=== PATIENT | female | born 1935 | race Caucasian/White ===

== ENCOUNTER 2017-07-31 12:50 | Emergency (ER) | payer MEDICARE, OTHER ==
[~2017-07-31] VITALS: Ht 154.9 cm; Wt 68.0 kg
[~2017-07-31 12:50] MED LIST: ACET325 PO; LISI10 PO; LISI20 PO; LOVA20 PO; LOVA40 PO; METO25ER PO; METO50 PO; METO50ER PO; VITAMIN C PO; VITAMIN E PO; WARF2.5 PO; WARF5 PO; [UNRECOGNIZED DRUG - OTHER] PO; [UNRECOGNIZED DRUG - REMARK]; [UNRECOGNIZED DRUG - REMARK]
[2017-07-31 13:40] LABS: BASOPHILS ABSOLUTE AUTO 0.02 K/mm3 (0.00-0.23); BASOPHILS PERCENT AUTO 0 % (0-2); EOSINOPHILS ABSOLUTE AUTO 0.03 K/mm3 (0.00-0.68); EOSINOPHILS PERCENT AUTO 1 % (0-6); Hematocrit 39.1 % (33.0-51.0); IMMATURE GRAN ABSOLUTE AUTO 0.03 K/mm3 (0.00-0.10); IMMATURE GRAN PERCENT AUTO 1 % (0-1); LYMPHOCYTES ABSOLUTE AUTO 0.46 K/mm3 (0.84-5.20); LYMPHOCYTES PERCENT AUTO 9 % (21-46); MONOCYTES ABSOLUTE AUTO 0.32 K/mm3 (0.16-1.47); MONOCYTES PERCENT AUTO 7 % (4-13); Mean Corpuscular HGB 29.3 pg (26.0-34.0); Mean Corpuscular HGB Conc 33.2 g/dL (31.5-36.5); Mean Corpuscular Volume 88 fL (80-100); Mean Platelet Volume 9.3 fL (9.1-12.4); NEUTROPHILS ABSOLUTE AUTO 4.09 K/mm3 (1.96-9.15); NEUTROPHILS PERCENT AUTO 83 % (41-73); Platelet Count 114 K/mm3 (150-400); RDW Coefficient Variation 13.7 % (11.7-14.2); RDW Standard Deviation 44.2 fL (35.1-46.3); Red Blood Cell Count 4.43 M/mm3 (3.80-5.20); White Blood Cell Count 4.95 K/mm3 (4.00-11.30)
[2017-07-31 13:52] LABS: International Normalized Ratio 2.26; Prothrombin Time Results 24.1 Sec (9.7-11.5)
[2017-07-31 14:00] LABS: Alanine Aminotransfer (ALT/SGP 31 U/L (12-78); Albumin, Blood 3.7 g/dL (3.4-5.0); Albumin/Globulin Ratio 1.2 (0.8-1.8); Alk Phos 67 U/L (50-136); Anion Gap 7 mmol/L (6-16); Aspartate Aminotrans (AST/SGOT 23 U/L (12-37); Bilirubin, Total 0.5 mg/dL (0.1-1.0); Blood Urea Nitrogen 17 mg/dL (8-24); Bun/Creatinine Ratio 21.8 (12.0-20.0); CO2, Blood 28 mmol/L (21-32); Calcium, Blood 8.5 mg/dL (8.5-10.1); Chloride, Blood 106 mmol/L (98-108); Creatinine, Blood 0.78 mg/dL (0.40-1.00); Glomerular Filtration Rate >60 (60-); Glucose, Blood 120 mg/dL (70-99); Potassium, Blood 4.1 mmol/L (3.5-5.5); Sodium, Blood 141 mmol/L (136-145); Total Protein, Blood 6.7 g/dL (6.4-8.2)
[2017-07-31] MEDS ORDERED: ALBU90OI INH (15:17)
[2017-07-31] MEDS ORDERED: Mucinex600 MG PO (15:17)
== END 2017-07-31 15:26 | disposition home or self-care (01) ==
LOC: ER 12:50
PROVIDERS: Emergency Medicine
DX: J40 Bronchitis, not specified as acute or chronic (principal); I48.91 Unspecified atrial fibrillation; E78.5 Hyperlipidemia, unspecified; Z88.2 Allergy status to sulfonamides; Z79.899 Other long term (current) drug therapy; Z79.01 Long term (current) use of anticoagulants
CPT/HCPCS: 36415; 71046; 80053; 83880; 85025; 85610; 93005; 93010; 94640; 99283

== ENCOUNTER 2018-01-13 22:06 | Observation (INO) | payer MEDICARE, OTHER ==
[~2018-01-13] VITALS: Ht 160 cm; Wt 70.4 kg
[~2018-01-13 22:06] MED LIST changes: +ALBU90OI INH; +Mucinex600 MG PO
[2018-01-13 22:37] LABS: BASOPHILS ABSOLUTE AUTO 0.02 K/mm3 (0.00-0.23); BASOPHILS PERCENT AUTO 0 % (0-2); EOSINOPHILS ABSOLUTE AUTO 0.01 K/mm3 (0.00-0.68); EOSINOPHILS PERCENT AUTO 0 % (0-6); Hematocrit 41.7 % (33.0-51.0); Hemoglobin 13.7 g/dL (11.5-16.0); IMMATURE GRAN ABSOLUTE AUTO 0.03 K/mm3 (0.00-0.10); IMMATURE GRAN PERCENT AUTO 1 % (0-1); LYMPHOCYTES ABSOLUTE AUTO 0.68 K/mm3 (0.84-5.20); LYMPHOCYTES PERCENT AUTO 11 % (21-46); MONOCYTES PERCENT AUTO 7 % (4-13); Mean Corpuscular HGB 29.4 pg (26.0-34.0); Mean Corpuscular HGB Conc 32.9 g/dL (31.5-36.5); Mean Corpuscular Volume 90 fL (80-100); Mean Platelet Volume 8.8 fL (9.1-12.4); NEUTROPHILS ABSOLUTE AUTO 4.93 K/mm3 (1.96-9.15); NEUTROPHILS PERCENT AUTO 81 % (41-73); Platelet Count 125 K/mm3 (150-400); RDW Coefficient Variation 14.1 % (11.7-14.2); Red Blood Cell Count 4.66 M/mm3 (3.80-5.20); White Blood Cell Count 6.07 K/mm3 (4.00-11.30)
[2018-01-13 22:50] LABS: International Normalized Ratio 1.87; Prothrombin Time Results 18.6 Sec (9.7-11.5)
[2018-01-13 22:55] LABS: Alanine Aminotransfer (ALT/SGP 49 U/L (12-78); Albumin/Globulin Ratio 1.5 (0.8-1.8); Alk Phos 68 U/L (50-136); Anion Gap 10 mmol/L (6-16); Aspartate Aminotrans (AST/SGOT 48 U/L (12-37); Bilirubin, Total 0.5 mg/dL (0.1-1.0); Blood Urea Nitrogen 20 mg/dL (8-24); Bun/Creatinine Ratio 26.8 (12.0-20.0); CO2, Blood 25 mmol/L (21-32); Calcium, Blood 8.5 mg/dL (8.5-10.1); Chloride, Blood 104 mmol/L (98-108); Creatinine, Blood 0.75 mg/dL (0.40-1.00); Globulin, Blood 2.7 g/dL (2.2-4.0); Glomerular Filtration Rate >60 (60-); Glucose, Blood 164 mg/dL (70-99); Potassium, Blood 4.3 mmol/L (3.5-5.5); Sodium, Blood 139 mmol/L (136-145); Total Protein, Blood 6.7 g/dL (6.4-8.2); Troponin I 0.141 ng/mL (0.000-0.040)
[2018-01-14 01:44] LABS: Free Thyroxine 1.24 ng/dL (0.70-1.60)
[2018-01-14 01:45] LABS: Triiodothyronine, Free 2.8 pg/mL (2.18-3.98)
[2018-01-14 01:49] LABS: Source, Urine Clean Catch
[2018-01-14 01:51] LABS: Bilirubin, Urine Neg (Neg); Blood, Urine Neg (Neg); Glucose Qualitative, Urine Neg (Neg); Ketones, Urine Neg (Neg); Leukocyte Esterase, Urine 1+ (Neg); Nitrite, Urine Neg (Neg); Protein, Urine 2+ (Neg); Urobilinogen, Urine NORM (Normal)
[2018-01-14 01:53] LABS: Appearance, Urine Clear (Clear); Color, Urine Yellow (P-Yellow)
[2018-01-14 01:58] LABS: Bacteria Few /hpf; Red Blood Cells, Urine Not Seen /hpf (0-2); Squamous Epithelial Cells Few /hpf (Few); White Blood Cells, Urine 0-2 /hpf (0-5)
[2018-01-14 07:09] LABS: BASOPHILS ABSOLUTE AUTO 0.02 K/mm3 (0.00-0.23); BASOPHILS PERCENT AUTO 1 % (0-2); EOSINOPHILS ABSOLUTE AUTO 0.01 K/mm3 (0.00-0.68); EOSINOPHILS PERCENT AUTO 0 % (0-6); Hematocrit 38.9 % (33.0-51.0); Hemoglobin 12.6 g/dL (11.5-16.0); IMMATURE GRAN ABSOLUTE AUTO 0.01 K/mm3 (0.00-0.10); IMMATURE GRAN PERCENT AUTO 0 % (0-1); LYMPHOCYTES ABSOLUTE AUTO 0.78 K/mm3 (0.84-5.20); LYMPHOCYTES PERCENT AUTO 18 % (21-46); MONOCYTES ABSOLUTE AUTO 0.43 K/mm3 (0.16-1.47); MONOCYTES PERCENT AUTO 10 % (4-13); Mean Corpuscular HGB 29.7 pg (26.0-34.0); Mean Corpuscular HGB Conc 32.4 g/dL (31.5-36.5); Mean Corpuscular Volume 92 fL (80-100); Mean Platelet Volume 9.1 fL (9.1-12.4); NEUTROPHILS ABSOLUTE AUTO 3.03 K/mm3 (1.96-9.15); NEUTROPHILS PERCENT AUTO 71 % (41-73); Platelet Count 125 K/mm3 (150-400); RDW Coefficient Variation 14.5 % (11.7-14.2); RDW Standard Deviation 48.3 fL (35.1-46.3); Red Blood Cell Count 4.24 M/mm3 (3.80-5.20); White Blood Cell Count 4.28 K/mm3 (4.00-11.30)
[2018-01-14 07:20] LABS: International Normalized Ratio 1.76; Prothrombin Time Results 17.6 Sec (9.7-11.5)
[2018-01-14 07:37] LABS: Anion Gap 7 mmol/L (6-16); Blood Urea Nitrogen 17 mg/dL (8-24); Bun/Creatinine Ratio 22.3 (12.0-20.0); CO2, Blood 27 mmol/L (21-32); Chloride, Blood 107 mmol/L (98-108); Creatinine, Blood 0.76 mg/dL (0.40-1.00); Glomerular Filtration Rate >60 (60-); Glucose, Blood 102 mg/dL (70-99); Magnesium, Blood 2.5 mg/dL (1.6-2.4); Potassium, Blood 4.5 mmol/L (3.5-5.5); Sodium, Blood 141 mmol/L (136-145)
[2018-01-14] MEDS ORDERED: METO50ER PO (09:25)
[2018-01-14] MEDS ORDERED: Lovastatin20 MG PO (09:26)
== END 2018-01-14 18:15 | disposition short-term general hospital (02) ==
LOC: ER 22:06 → PCU 22:07 → ER 01-14 00:24 → PCU 01-14 00:24
PROVIDERS: Emergency Medicine; Family Medicine
DX: I25.10 Atherosclerotic heart disease of native coronary artery without angina pectoris (principal); I35.0 Nonrheumatic aortic (valve) stenosis; I48.0 Paroxysmal atrial fibrillation; E78.5 Hyperlipidemia, unspecified; I10 Essential (primary) hypertension; D69.6 Thrombocytopenia, unspecified; J18.1 Lobar pneumonia, unspecified organism; K59.00 Constipation, unspecified; Z88.2 Allergy status to sulfonamides; Z79.899 Other long term (current) drug therapy; Z79.01 Long term (current) use of anticoagulants; Z87.891 Personal history of nicotine dependence
CPT/HCPCS: 36415; 71045; 71275; 74175; 80048; 80053; 81001; 83735; 83880; 84439; 84443; 84481; 84484; 85025; 85610; 85730; 87086; 93005; 93010; 93306; 93454; 96361; 96374; 96375; 96376; 99152; 99153; 99285-25; C1760; C1769; J0696; J1160; J1644; J2250; J3010; J7030; J7040; Q9967

== ENCOUNTER → 2018-02-21 | Outpatient (CLI) | payer MEDICARE, OTHER ==
[~2018-02-21] MED LIST changes: +ASPI81CH PO; +Amiodarone HCl400 MG PO; +CEPH500 PO; +DOCU100 PO; +FAMO20 PO; +LISI5 PO; +Lopressor 25 mg25 MG PO; +Lovastatin20 MG PO; +METO25 PO; +Metoprolol Tart50 MG PO; +NITR.4SL SL; +TICA90TA; +TICA90TA PO; +WARF10 PO; +WARF2 PO; +WARF4 PO
[2018-02-21 09:59] LABS: BASOPHILS ABSOLUTE AUTO 0.02 K/mm3 (0.00-0.23); BASOPHILS PERCENT AUTO 0 % (0-2); EOSINOPHILS ABSOLUTE AUTO 0.01 K/mm3 (0.00-0.68); EOSINOPHILS PERCENT AUTO 0 % (0-6); Hemoglobin 9.1 g/dL (11.5-16.0); IMMATURE GRAN ABSOLUTE AUTO 0.08 K/mm3 (0.00-0.10); IMMATURE GRAN PERCENT AUTO 1 % (0-1); LYMPHOCYTES ABSOLUTE AUTO 0.36 K/mm3 (0.84-5.20); LYMPHOCYTES PERCENT AUTO 5 % (21-46); MONOCYTES ABSOLUTE AUTO 0.61 K/mm3 (0.16-1.47); MONOCYTES PERCENT AUTO 8 % (4-13); Mean Corpuscular HGB 29.8 pg (26.0-34.0); Mean Corpuscular HGB Conc 32.5 g/dL (31.5-36.5); Mean Corpuscular Volume 92 fL (80-100); Mean Platelet Volume 9.4 fL (9.1-12.4); NEUTROPHILS ABSOLUTE AUTO 6.36 K/mm3 (1.96-9.15); NEUTROPHILS PERCENT AUTO 86 % (41-73); NRBC ABSOLUTE 0.02 K/mm3 (0.00-0.02); NRBC Auto 0.3 /100 WBC (0.0-0.2); Platelet Count 229 K/mm3 (150-400); RDW Coefficient Variation 18.3 % (11.7-14.2); RDW Standard Deviation 57.6 fL (35.1-46.3); Red Blood Cell Count 3.05 M/mm3 (3.80-5.20); White Blood Cell Count 7.44 K/mm3 (4.00-11.30)
[2018-02-21 10:22] LABS: Bun/Creatinine Ratio 13.3 (12.0-20.0); Calcium, Blood 8.2 mg/dL (8.5-10.1); Creatinine, Blood 1.05 mg/dL (0.40-1.00); Potassium, Blood 4.2 mmol/L (3.5-5.5)
[2018-02-21 12:46] LABS: Prothrombin Time Results 69.4 Sec (9.7-11.5)
[2018-02-21 12:54] LABS: International Normalized Ratio 7.55
== END | disposition home or self-care (01) ==
LOC: LAB EV 09:47 → LAB SHORT 09:47
PROVIDERS: Family Medicine
DX: Z79.01 Long term (current) use of anticoagulants (principal); Z51.81 Encounter for therapeutic drug level monitoring; Z95.4 Presence of other heart-valve replacement
CPT/HCPCS: 80048; 85025; 85610

== ENCOUNTER 2018-10-25 07:08 | Emergency (ER) | payer MEDICARE, OTHER ==
[~2018-10-25] VITALS: Ht 157.5 cm; Wt 58.5 kg
[~2018-10-25 07:08] MED LIST changes: +Coumadin2 MG PO; -WARF4 PO
[2018-10-25 07:42] LABS: BASOPHILS ABSOLUTE AUTO 0.03 K/mm3 (0.00-0.23); BASOPHILS PERCENT AUTO 0 % (0-2); EOSINOPHILS PERCENT AUTO 0 % (0-6); Hematocrit 36.2 % (33.0-51.0); IMMATURE GRAN ABSOLUTE AUTO 0.21 K/mm3 (0.00-0.10); IMMATURE GRAN PERCENT AUTO 2 % (0-1); LYMPHOCYTES ABSOLUTE AUTO 0.26 K/mm3 (0.84-5.20); LYMPHOCYTES PERCENT AUTO 2 % (21-46); MONOCYTES ABSOLUTE AUTO 0.82 K/mm3 (0.16-1.47); MONOCYTES PERCENT AUTO 7 % (4-13); Mean Corpuscular HGB 26.7 pg (26.0-34.0); Mean Corpuscular HGB Conc 30.4 g/dL (31.5-36.5); Mean Corpuscular Volume 88 fL (80-100); Mean Platelet Volume 9.8 fL (9.1-12.4); NEUTROPHILS ABSOLUTE AUTO 10.88 K/mm3 (1.96-9.15); NEUTROPHILS PERCENT AUTO 89 % (41-73); Platelet Count 250 K/mm3 (150-400); RDW Standard Deviation 54.2 fL (35.1-46.3); Red Blood Cell Count 4.12 M/mm3 (3.80-5.20)
[2018-10-25 07:56] LABS: Anion Gap 5 mmol/L (6-16); Blood Urea Nitrogen 14 mg/dL (8-24); Bun/Creatinine Ratio 16.8 (12.0-20.0); CO2, Blood 26 mmol/L (21-32); Calcium, Blood 8.5 mg/dL (8.5-10.1); Chloride, Blood 108 mmol/L (98-108); Creatinine, Blood 0.84 mg/dL (0.40-1.00); Glomerular Filtration Rate >60 (60-); Glucose, Blood 128 mg/dL (70-99); Potassium, Blood 4.1 mmol/L (3.5-5.5); Sodium, Blood 139 mmol/L (136-145)
[2018-10-25 07:58] LABS: International Normalized Ratio 3.33; Prothrombin Time Results 31.6 Sec (9.7-11.5)
[2018-10-25] MEDS ORDERED: LIDO700A20 TOP (09:21)
[2018-10-25] MEDS ORDERED: Ultram50 MG PO (09:21)
== END 2018-10-25 10:10 | disposition home or self-care (01) ==
LOC: ER 07:08
PROVIDERS: Emergency Medicine
DX: S70.02XA Contusion of left hip, initial encounter (principal); S70.01XA Contusion of right hip, initial encounter; S70.10XA Contusion of unspecified thigh, initial encounter; M54.5 Low back pain; R79.1 Abnormal coagulation profile; W19.XXXA Unspecified fall, initial encounter; I48.91 Unspecified atrial fibrillation; I10 Essential (primary) hypertension; E78.5 Hyperlipidemia, unspecified; Z88.2 Allergy status to sulfonamides; Z79.899 Other long term (current) drug therapy; Z79.82 Long term (current) use of aspirin; Z79.01 Long term (current) use of anticoagulants
CPT/HCPCS: 36415; 74176; 80048; 85025; 85610; 96374; 99284-25; J3010

== ENCOUNTER 2018-11-16 20:37 | Inpatient (IN) | payer MEDICARE, OTHER ==
[~2018-11-16] VITALS: Ht 157.5 cm; Wt 59.0 kg
[~2018-11-16 20:37] MED LIST changes: +LIDO700A20 TOP; +Ultram50 MG PO
[2018-11-16 21:42] LABS: Source, Urine Clean Catch
[2018-11-16 21:47] LABS: Bilirubin, Urine Neg (Neg); Blood, Urine 1+ (Neg); Glucose Qualitative, Urine Neg (Neg); Ketones, Urine Neg (Neg); Leukocyte Esterase, Urine 1+ (Neg); Nitrite, Urine Pos (Neg); Protein, Urine 2+ (Neg); Specific Gravity, Urine 1.025 (1.003-1.022); Urobilinogen, Urine 2+ (Normal)
[2018-11-16 21:55] LABS: Appearance, Urine Hazy (Clear); Color, Urine Yellow (P-Yellow)
[2018-11-16 21:57] LABS: Amorphous Mod (0-Heavy); Bacteria Many /hpf; Red Blood Cells, Urine 0-2 /hpf (0-2); Squamous Epithelial Cells Rare /hpf (Few)
[2018-11-16] MEDS ORDERED: TICA90TA PO (23:01)
[2018-11-16] MEDS ORDERED: DOCU100 PO (23:01)
[2018-11-16] MEDS ORDERED: HYDR1TAB94 PO (23:02)
[2018-11-16] MEDS ORDERED: METO25ER PO (23:02)
[2018-11-16] MEDS ORDERED: VITAMIN C PO (23:03)
[2018-11-16] MEDS ORDERED: VITAMIN B12 PO (23:03)
[2018-11-16] MEDS ORDERED: Oyster Shell C500 MG PO (23:03)
[2018-11-16] MEDS ORDERED: CHOL10002 PO (23:04)
[2018-11-16] MEDS ORDERED: LOVA40 PO (23:06)
[2018-11-16] MEDS ORDERED: ANTACID PO (23:06)
[2018-11-16] MEDS ORDERED: GABA100 PO (23:06)
[2018-11-16] MEDS ORDERED: Miacalcin I200 IU/ML INH (23:07)
[2018-11-16] MEDS ORDERED: Acetaminophen650 M1 PO (23:08)
[2018-11-16 23:27] LABS: BASOPHILS ABSOLUTE AUTO 0.02 K/mm3 (0.00-0.23); BASOPHILS PERCENT AUTO 0 % (0-2); EOSINOPHILS ABSOLUTE AUTO 0.01 K/mm3 (0.00-0.68); EOSINOPHILS PERCENT AUTO 0 % (0-6); Hematocrit 29.2 % (33.0-51.0); Hemoglobin 8.5 g/dL (11.5-16.0); IMMATURE GRAN PERCENT AUTO 1 % (0-1); LYMPHOCYTES ABSOLUTE AUTO 0.63 K/mm3 (0.84-5.20); LYMPHOCYTES PERCENT AUTO 8 % (21-46); MONOCYTES ABSOLUTE AUTO 0.76 K/mm3 (0.16-1.47); MONOCYTES PERCENT AUTO 10 % (4-13); Mean Corpuscular HGB 25.8 pg (26.0-34.0); Mean Corpuscular HGB Conc 29.1 g/dL (31.5-36.5); Mean Corpuscular Volume 89 fL (80-100); Mean Platelet Volume 9.3 fL (9.1-12.4); NEUTROPHILS PERCENT AUTO 80 % (41-73); NRBC ABSOLUTE 0.04 K/mm3 (0.00-0.02); NRBC Auto 0.5 /100 WBC (0.0-0.2); Platelet Count 268 K/mm3 (150-400); RDW Coefficient Variation 18.5 % (11.7-14.2); RDW Standard Deviation 58.6 fL (35.1-46.3); Red Blood Cell Count 3.29 M/mm3 (3.80-5.20); White Blood Cell Count 7.52 K/mm3 (4.00-11.30)
[2018-11-16 23:47] LABS: Alanine Aminotransfer (ALT/SGP 22 U/L (12-78); Albumin, Blood 2.5 g/dL (3.4-5.0); Albumin/Globulin Ratio 0.9 (0.8-1.8); Alk Phos 195 U/L (50-136); Anion Gap 5 mmol/L (6-16); Aspartate Aminotrans (AST/SGOT 17 U/L (12-37); Bilirubin, Total 0.8 mg/dL (0.1-1.0); Blood Urea Nitrogen 14 mg/dL (8-24); Bun/Creatinine Ratio 17.9 (12.0-20.0); CO2, Blood 29 mmol/L (21-32); Calcium, Blood 7.7 mg/dL (8.5-10.1); Chloride, Blood 108 mmol/L (98-108); Creatinine, Blood 0.78 mg/dL (0.40-1.00); Globulin, Blood 2.9 g/dL (2.2-4.0); Glomerular Filtration Rate >60 (60-); Glucose, Blood 116 mg/dL (70-99); Potassium, Blood 4.1 mmol/L (3.5-5.5); Sodium, Blood 142 mmol/L (136-145); Total Protein, Blood 5.4 g/dL (6.4-8.2)
[2018-11-17 00:25] LABS: International Normalized Ratio 1.63; Prothrombin Time Results 16.5 Sec (9.7-11.5)
[2018-11-17 02:12] LABS: Percent Saturation 14.6 % (15.0-50.0)
--- NOTE | 2018-11-17 03:59 | NUR ---
Shift summary: Pt admitted around 0230 last pm. Pt came from [facility]. Pt has had a recent fall where she broke her tail bone and pain relief not effective. Pt states the nurses there were not giving her enough meds. Pt given percocet as soon as she got her and is getting effective pain relief. Pt also c/o painful urination and has a UTI and started on antibiotics. Admission completed. Pt requires 1-2 person assist to get to bedside commode.
[2018-11-17 04:42] LABS: Hematocrit 27.3 % (33.0-51.0); Mean Corpuscular HGB 25.6 pg (26.0-34.0); Mean Corpuscular HGB Conc 29.3 g/dL (31.5-36.5); Mean Corpuscular Volume 88 fL (80-100); Mean Platelet Volume 9.3 fL (9.1-12.4); NRBC ABSOLUTE 0.03 K/mm3 (0.00-0.02); NRBC Auto 0.5 /100 WBC (0.0-0.2); Platelet Count 247 K/mm3 (150-400); RDW Coefficient Variation 18.6 % (11.7-14.2); RDW Standard Deviation 58.4 fL (35.1-46.3); Red Blood Cell Count 3.12 M/mm3 (3.80-5.20)
--- NOTE | 2018-11-17 07:49 | NUR ---
IV: ATTEMPTED TO FLUSH IV SITE. PAINFUL FOR THE PATIENT AND UNABLE TO FLUSH. LARGE BRUISE SURROUNDS SITE. NEW IV PLACEMENT NEEDED.
[2018-11-17 13:38] LABS: Hematocrit 29.6 % (33.0-51.0); Hemoglobin 8.7 g/dL (11.5-16.0); Mean Corpuscular HGB 26.5 pg (26.0-34.0); Mean Corpuscular HGB Conc 29.4 g/dL (31.5-36.5); Mean Corpuscular Volume 90 fL (80-100); Mean Platelet Volume 9.6 fL (9.1-12.4); NRBC ABSOLUTE 0.03 K/mm3 (0.00-0.02); NRBC Auto 0.4 /100 WBC (0.0-0.2); Platelet Count 284 K/mm3 (150-400); RDW Coefficient Variation 18.7 % (11.7-14.2); Red Blood Cell Count 3.28 M/mm3 (3.80-5.20); White Blood Cell Count 7.77 K/mm3 (4.00-11.30)
--- NOTE | 2018-11-17 19:11 | NUR ---
END OF SHIFT SUMMARY: PATIENT REPORTED PAIN WITH MOBILITY. PATIENT MEDICATED PER PRNS TO CONTROL PAIN WELL ASSIST WITH OOB ACTIVITY. PATIENT WORKED WITH PT AND WAS UP TO THE [facility] MULTIPLE TIMES. PATIENT REFUSED TO SIT IN THE CHAIR FOR MEALS. ENCOURAGED PATIENT TO PUSH HERSELF TO ATTEMPT TO EAT HER MEALS OUT OF BED TOMORROW. PATIENT WAS AGREEABLE. WORKED TO WEEN PATIENT OFF OF O2 THIS EVENING. AFTER BEING WITHOUT 1L VIA NC FOR 1.5 HOURS, PATIENT O2 SATURATION WAS 93%. PATIENT DENIED SOB OR DIFFICULTY BREATHING. NO SIGNS OR SYMPTOMS OF DISTRESS. PATIENT MEDICATED WITH SCHEDULED MEDICATIONS AND PRNS TO ASSIST WITH BOWEL MOVEMENT. PATIENT WAS UNABLE TO HAVE A BOWEL MOVEMENT THIS SHIFT.
--- NOTE | 2018-11-18 03:29 | NUR ---
SHIFT SUMMARY PATIENT HAD NO ACUTE CHANGES OBSERVED THIS SHIFT. AXO 3 W/CONFUSION AT TIMES. PATIENT REPORTS PAIN WITH MOVEMENT AND PERCOCET 2 TABS GIVEN PER EMAR. DENIES SOB AND N/V. VSS/AFEBRILE. PATIENT OFF O2 THIS SHIFT STATING 94%. PIV REMAINS INTACT. IV ABXS INFUSED. TAKES MEDICATION WHOLE WITH WATER. PATIENT RESTLESS WITH REPOSITIONING NOT ABLE TO EXPRESS HER NEEDS FOR COMFORT. CALL LIGHT IN REACH. BED IN LOWEST POSITION. WILL CONTINUE TO MONITOR UNTIL DAY SHIFT NURSE ASSUMES CARE.
--- NOTE | 2018-11-18 18:38 | NUR ---
PT. BACK IN BED AFTER UP TO BSC. PT. WAS FINALLY ABLE TO HAVE A SOFTLY FORMED LIGHT BROWN MODERATE-SIZED STOOL AFTER SHE WAS GIVEN A SUPPOSITORY. STOOL SAMPLE SENT. NO OTHER NOTEABLE CHANGES THIS SHIFT. PERCOCET COVERING PAIN WELL. INTAKE OF FOOD AND FLUID GOOD.
--- NOTE | 2018-11-19 03:58 | NUR ---
SHIFT SUMMARY PATIENT HAD NO ACUTE CHANGES OBSERVED THIS SHIFT. AXOX 3 AND BEDREST AT NIGHT. PATIENT REPORTED SACRAL PAIN INCREASES WITH MOVEMENT. PERCOCET 2 TABS GIVEN PER EMAR. VSS/AFEBRILE. DENIES SOB AND N/V. PIV REMAINS INTACT AND IV ABXS INFUSED. PATIENT LESS ANXIOUS THIS SHIFT. TAKES MEDICATION A FEW AT A TIME WITH WATER. WATCHED TV FIRST PART OF THE SHIFT. CALL LIGHT IN REACH. BED IN LOWEST POSITION. WILL CONTINUE TO MONITOR UNTIL DAY SHIFT NURSE ASSUMES CARE.
[2018-11-19 04:58] LABS: BASOPHILS ABSOLUTE AUTO 0.03 K/mm3 (0.00-0.23); BASOPHILS PERCENT AUTO 1 % (0-2); EOSINOPHILS ABSOLUTE AUTO 0.07 K/mm3 (0.00-0.68); EOSINOPHILS PERCENT AUTO 1 % (0-6); Hematocrit 27.5 % (33.0-51.0); IMMATURE GRAN PERCENT AUTO 2 % (0-1); LYMPHOCYTES ABSOLUTE AUTO 0.66 K/mm3 (0.84-5.20); LYMPHOCYTES PERCENT AUTO 11 % (21-46); MONOCYTES ABSOLUTE AUTO 0.53 K/mm3 (0.16-1.47); MONOCYTES PERCENT AUTO 9 % (4-13); Mean Corpuscular HGB 25.6 pg (26.0-34.0); Mean Corpuscular HGB Conc 29.1 g/dL (31.5-36.5); Mean Corpuscular Volume 88 fL (80-100); Mean Platelet Volume 9.7 fL (9.1-12.4); NEUTROPHILS ABSOLUTE AUTO 4.48 K/mm3 (1.96-9.15); NEUTROPHILS PERCENT AUTO 76 % (41-73); NRBC ABSOLUTE 0.02 K/mm3 (0.00-0.02); NRBC Auto 0.3 /100 WBC (0.0-0.2); Platelet Count 246 K/mm3 (150-400); RDW Coefficient Variation 18.7 % (11.7-14.2); RDW Standard Deviation 57.8 fL (35.1-46.3); Red Blood Cell Count 3.13 M/mm3 (3.80-5.20); White Blood Cell Count 5.87 K/mm3 (4.00-11.30)
[2018-11-19 05:17] LABS: Anion Gap 6 mmol/L (6-16); Blood Urea Nitrogen 15 mg/dL (8-24); Bun/Creatinine Ratio 19.3 (12.0-20.0); CO2, Blood 28 mmol/L (21-32); Calcium, Blood 7.9 mg/dL (8.5-10.1); Chloride, Blood 105 mmol/L (98-108); Creatinine, Blood 0.78 mg/dL (0.40-1.00); Glomerular Filtration Rate >60 (60-); Glucose, Blood 77 mg/dL (70-99); Potassium, Blood 4.7 mmol/L (3.5-5.5); Sodium, Blood 139 mmol/L (136-145)
[2018-11-19 13:26] LABS: Stool Occult Bld Immuno 1 Negative (NEGATIVE)
--- NOTE | 2018-11-19 18:07 | NUR ---
PT. SITTING IN BED, IS STILL VERY WEAK WHEN GETTING UP TO BSC. UNABLE TO GET UP FROM BED BY SELF. SHE HAS BEEN VERY DIFFICULT TO GET COMFORTABLE TODAY. OFFERED SHOWER BUT SHE DECLINED. REFUSES UP TO CHAIR IT HURTS TO MUCH AND THAT IS WITH 2 PEERCOCET. FAMILY WOULD LIKE TO TALK WITH TOMORROW REGARDING PLANS AT DISCHARGE.
--- NOTE | 2018-11-20 03:33 | NUR ---
SHIFT SUMMARY PATIENT HAD NO ACUTE CHANGES OBSERVED THIS SHIFT. MORE ANXIOUS THAN LAST NOC SHIFT WITH WANTING REPOSITIONING Q 45 MINUTES AT BEGINING OF SHIFT. AXOX 3 W/CONFUSION AT TIMES. ONE ASSIST TO BSC. REPORTS PAIN WITH MOVEMENT AND PERCOCET TWO TABS GIVEN PER EMAR. PIV REMAINS INTACT. TWO IV ABXS INFUSED. VSS/AFEBRILE. ADDITIONAL MILK OF MAG GIVEN FOR BOWEL CARE PER PATIENT. CALL LIGHT IN REACH. BED IN LOWEST POSITION. WILL CONTINUE TO MONITOR UNTIL DAY SHIFT NURSE ASSUMES CARE.
[2018-11-20 04:50] LABS: Hematocrit 28.1 % (33.0-51.0); Hemoglobin 8.3 g/dL (11.5-16.0)
--- NOTE | 2018-11-20 19:21 | NUR ---
Clinical Visit: Pt was on the toilet, apparently has been having loose stools today. She has been up and down to the [facility], will start PT/OT tomorrow, per patient. She has dinner in front of her, reports 5/10 pain at this time. Pain medications work when she takes them. Has been 6 hours since her last dose. She is asking to call her daughter. Will follow up tomorrow. Requested pain meds from nurseTom.
--- NOTE | 2018-11-20 19:22 | NUR ---
SUMMARY PT IS A/O X3, PLEASANT AFFECT. 1 ASSIST TO BSC. SHE STATE CONTINUING LOW BACK, SACRAL AREA PAIN w MOVEMENT/WT BRG, STATE DIFFICULTY WITH SITTING IN CHAIR D/T SACRAL FX. HAVE GIVEN PERCOCET 2 TABS APPROX Q4 HRS FOR PAIN RELIEF/CONTROL. THIS AM SHE STATE CONSTIPATION, NO RESULTS AFTER SCHEDULED BOWEL MEDS, PRN MOM GIVEN. SHE HAD XLRG SOFT FORMED BM. LATER HAD LRG LOOSE BM & HAS HAD MULT LOOSE BM'S SINCE, CONSTIPATION RELIEVED. DR KEYS ORDER PROBIOTIC TO START TOMORROW. VSS. PLAN FOR HER TO GO TO SNF OR BACK TO [facility] w INCREASED CAREGIVER SUPPORT. SHE HAD PT/OT EVAL TODAY.
[2018-11-21 05:01] LABS: BASOPHILS ABSOLUTE AUTO 0.04 K/mm3 (0.00-0.23); BASOPHILS PERCENT AUTO 1 % (0-2); EOSINOPHILS ABSOLUTE AUTO 0.08 K/mm3 (0.00-0.68); EOSINOPHILS PERCENT AUTO 1 % (0-6); Hematocrit 30.9 % (33.0-51.0); IMMATURE GRAN ABSOLUTE AUTO 0.21 K/mm3 (0.00-0.10); IMMATURE GRAN PERCENT AUTO 3 % (0-1); LYMPHOCYTES ABSOLUTE AUTO 0.99 K/mm3 (0.84-5.20); LYMPHOCYTES PERCENT AUTO 13 % (21-46); MONOCYTES ABSOLUTE AUTO 0.64 K/mm3 (0.16-1.47); MONOCYTES PERCENT AUTO 9 % (4-13); Mean Corpuscular HGB 25.4 pg (26.0-34.0); Mean Corpuscular HGB Conc 29.1 g/dL (31.5-36.5); Mean Corpuscular Volume 87 fL (80-100); Mean Platelet Volume 9.5 fL (9.1-12.4); NEUTROPHILS ABSOLUTE AUTO 5.45 K/mm3 (1.96-9.15); NEUTROPHILS PERCENT AUTO 74 % (41-73); NRBC ABSOLUTE 0.05 K/mm3 (0.00-0.02); NRBC Auto 0.7 /100 WBC (0.0-0.2); Platelet Count 307 K/mm3 (150-400); RDW Coefficient Variation 18.3 % (11.7-14.2); RDW Standard Deviation 57.6 fL (35.1-46.3); RETICULOCYTE ABSOLUTE 0.1424 M/mm3 (0.0200-0.1100); RETICULOCYTE COUNT PERCENT 4.01 % (0.50-2.50); Red Blood Cell Count 3.55 M/mm3 (3.80-5.20); White Blood Cell Count 7.41 K/mm3 (4.00-11.30)
[2018-11-21 05:29] LABS: Alanine Aminotransfer (ALT/SGP 22 U/L (12-78); Albumin, Blood 2.6 g/dL (3.4-5.0); Albumin/Globulin Ratio 0.8 (0.8-1.8); Alk Phos 207 U/L (50-136); Anion Gap 5 mmol/L (6-16); Aspartate Aminotrans (AST/SGOT 22 U/L (12-37); Bilirubin, Total 0.5 mg/dL (0.1-1.0); Blood Urea Nitrogen 13 mg/dL (8-24); Bun/Creatinine Ratio 18.3 (12.0-20.0); CO2, Blood 28 mmol/L (21-32); Calcium, Blood 8.2 mg/dL (8.5-10.1); Chloride, Blood 104 mmol/L (98-108); Creatinine, Blood 0.71 mg/dL (0.40-1.00); Globulin, Blood 3.3 g/dL (2.2-4.0); Glomerular Filtration Rate >60 (60-); Glucose, Blood 86 mg/dL (70-99); Phosphorus, Blood 3.9 mg/dL (2.5-4.9); Potassium, Blood 4.9 mmol/L (3.5-5.5); Sodium, Blood 137 mmol/L (136-145); Total Protein, Blood 5.9 g/dL (6.4-8.2)
--- NOTE | 2018-11-21 06:33 | NUR ---
SHIFT SUMMARY PT RECIEVED PAIN MEDICATION PER JUN. VSS. NO OTHER COMPLAINTS BY PT. PT UP TO COMMODE 1 ASSIST. FEET ELEVATED HEELS ARE BECOMING PINK AND BLANCHABLE. WILL CONTINUE TO MONITOR.
--- NOTE | 2018-11-21 14:56 | NUR ---
SUMMARY PT IS A/O X3 T/O DAY, PLEASANT/COOPERATIVE AFFECT. SHE HAS PARTICIPATED WITH PT/OT, BEEN UP IN CHAIR FOR MEALS. STATE CONTINUING SACRAL AREA PAIN, PRN PERCOCET FOR RELIEF/CONTROL. SHE STATE CONTINUING WEAKNESS HOWEVER SOMEWHAT IMPROVED, 1 ASSIST w FWW. SHE IS SOMEWHAT PALE, H&H LOW @ 01/08.9, DR KOHLI ORDER IV FE+ SUPPLEMENT, STOOL SAMPLE & GI CONSULT FOR ANEMIA. DR JURADO NOTIFIED. VSS. REPRESENTATIVES FROM [place] WHERE PT LIVES IN TO ASSESS RETURN HOME WHEN APPROP.
[2018-11-22 04:58] LABS: BASOPHILS ABSOLUTE AUTO 0.03 K/mm3 (0.00-0.23); BASOPHILS PERCENT AUTO 1 % (0-2); EOSINOPHILS ABSOLUTE AUTO 0.05 K/mm3 (0.00-0.68); EOSINOPHILS PERCENT AUTO 1 % (0-6); Hematocrit 25.5 % (33.0-51.0); Hemoglobin 7.4 g/dL (11.5-16.0); IMMATURE GRAN ABSOLUTE AUTO 0.17 K/mm3 (0.00-0.10); IMMATURE GRAN PERCENT AUTO 3 % (0-1); LYMPHOCYTES ABSOLUTE AUTO 0.54 K/mm3 (0.84-5.20); LYMPHOCYTES PERCENT AUTO 10 % (21-46); MONOCYTES PERCENT AUTO 9 % (4-13); Mean Corpuscular HGB 25.5 pg (26.0-34.0); Mean Corpuscular Volume 88 fL (80-100); Mean Platelet Volume 9.7 fL (9.1-12.4); NEUTROPHILS ABSOLUTE AUTO 4.41 K/mm3 (1.96-9.15); NEUTROPHILS PERCENT AUTO 77 % (41-73); NRBC ABSOLUTE 0.05 K/mm3 (0.00-0.02); NRBC Auto 0.9 /100 WBC (0.0-0.2); Platelet Count 263 K/mm3 (150-400); RDW Coefficient Variation 18.1 % (11.7-14.2); RDW Standard Deviation 57.1 fL (35.1-46.3)
--- NOTE | 2018-11-22 05:17 | NUR ---
Rn summary: Pt is alert and oriented. She was very restless at the beginning of shift, having difficulty getting comfortable. Repositioned multiple times. Pt was medicated at beginning of shift and again at 0225. Pt has rested better the second half of shift. Pt is 1 minimal assist to BSC. Pt has not shown dyspnea with activity, but goes just short distances. Dr. Mackay was at bedside and did talk with pts daughter on the phone last evening. IV ABX continue as ordered. Call light in reach and she is able to use appropriately.
[2018-11-22 05:19] LABS: Anion Gap 5 mmol/L (6-16); Blood Urea Nitrogen 12 mg/dL (8-24); Bun/Creatinine Ratio 16.8 (12.0-20.0); CO2, Blood 28 mmol/L (21-32); Calcium, Blood 7.6 mg/dL (8.5-10.1); Chloride, Blood 105 mmol/L (98-108); Creatinine, Blood 0.71 mg/dL (0.40-1.00); Glomerular Filtration Rate >60 (60-); Glucose, Blood 87 mg/dL (70-99); Potassium, Blood 4.9 mmol/L (3.5-5.5); Sodium, Blood 138 mmol/L (136-145)
--- NOTE | 2018-11-22 15:14 | NUR ---
PT STATUS I AM UNCERTAIN OF WHY THERE IS A DELAY IN GETTING THE UNIT OF BLOOD THAT WAS ORDERED. I HAVE CALLED THE BLOOD BANK TO REQUEST THE BLOOD. I HAVE SENT THE REQUIRED SLIP. I HAVE ENTERED THE CORRECT ORDER REQUIRED, HAS THE PHYSICIAN. WILL CALL AGAIN SOON IF NO RESPONSE. MEANWHILE A SECOND IV HAS BEEN INSTALLED AND IRON IS CURRENTLY INFUSING.
--- NOTE | 2018-11-22 16:08 | NUR ---
BLOOD TRANSFUSION BEGAN VERIFIED BLOOD IS CORRECT WITH PROCEDURE NURSE SHAWN.
--- NOTE | 2018-11-22 17:15 | NUR ---
SHIFT SUMMARY TRANSFUSING 1 UNIT OF BLOOD TODAY DUE TO ANEMIA. IV IRON GIVEN ORDERED. PERCOSET GIVEN FOR PAIN. PT ASKS TO BE REPOSITIONED Q 15 MINUTES. WE HAVE HAD NO SUCCESS IN MAKING HER COMFORTABLE. SHE DID WELL TRANSFERING FROM BED TO BSC/CHAIR AND BACK. WE HAVE HER UP IN CHAIR FOR MEALS. NO STOOL YET, UNABLE TO GET REQUESTED GUAIAC SAMPLE. PLAN IS FOR UPPER AND LOWER ENDOSCOPY TOMORROW TO DETERMINE WHERE BLOOD LOSS IS OCCURING. HER ASSISTED LIVING FACILITY REQUESTED THIS PT BE MORE AMBULATORY AND HER PAIN BETTER CONTROLLED IF SHE IS TO RETURN THERE.
--- NOTE | 2018-11-22 17:23 | NUR ---
[facility] visit: Mrs. Mdeley was in a great deal of pain and could not carry conversation due to SOB. Immediately informed RN who addressed both issues. Pt admit fear and welcomed prayer for healing. She feels well-supported by her dtr, but admits to feeling that God has become distant. She responded well to spiritual counselor at law. Visit kept short. I will remain available.
--- NOTE | 2018-11-23 04:12 | NUR ---
Shift summary: Pt has had a hard time getting comfortable this pm. Pt has needed both percocet and fentanyl to get adequate pain relief. Pt cannot lay on her back at all. Pt up frequently to urinate- uses walker and one person assist.
[2018-11-23 04:51] LABS: BASOPHILS ABSOLUTE AUTO 0.05 K/mm3 (0.00-0.23); BASOPHILS PERCENT AUTO 1 % (0-2); EOSINOPHILS ABSOLUTE AUTO 0.07 K/mm3 (0.00-0.68); EOSINOPHILS PERCENT AUTO 1 % (0-6); Hematocrit 30.6 % (33.0-51.0); Hemoglobin 9.4 g/dL (11.5-16.0); IMMATURE GRAN ABSOLUTE AUTO 0.29 K/mm3 (0.00-0.10); IMMATURE GRAN PERCENT AUTO 5 % (0-1); LYMPHOCYTES ABSOLUTE AUTO 0.79 K/mm3 (0.84-5.20); LYMPHOCYTES PERCENT AUTO 13 % (21-46); MONOCYTES ABSOLUTE AUTO 0.56 K/mm3 (0.16-1.47); MONOCYTES PERCENT AUTO 10 % (4-13); Mean Corpuscular HGB 26.7 pg (26.0-34.0); Mean Corpuscular HGB Conc 30.7 g/dL (31.5-36.5); Mean Corpuscular Volume 87 fL (80-100); Mean Platelet Volume 9.4 fL (9.1-12.4); NEUTROPHILS ABSOLUTE AUTO 4.12 K/mm3 (1.96-9.15); NEUTROPHILS PERCENT AUTO 70 % (41-73); NRBC ABSOLUTE 0.08 K/mm3 (0.00-0.02); NRBC Auto 1.4 /100 WBC (0.0-0.2); Platelet Count 266 K/mm3 (150-400); RDW Coefficient Variation 17.5 % (11.7-14.2); RDW Standard Deviation 54.5 fL (35.1-46.3); Red Blood Cell Count 3.52 M/mm3 (3.80-5.20); White Blood Cell Count 5.88 K/mm3 (4.00-11.30)
[2018-11-23 05:18] LABS: Alanine Aminotransfer (ALT/SGP 21 U/L (12-78); Albumin, Blood 2.4 g/dL (3.4-5.0); Albumin/Globulin Ratio 0.8 (0.8-1.8); Alk Phos 188 U/L (50-136); Anion Gap 5 mmol/L (6-16); Aspartate Aminotrans (AST/SGOT 16 U/L (12-37); Bilirubin, Total 0.5 mg/dL (0.1-1.0); Blood Urea Nitrogen 13 mg/dL (8-24); Bun/Creatinine Ratio 15.2 (12.0-20.0); CO2, Blood 28 mmol/L (21-32); Calcium, Blood 7.8 mg/dL (8.5-10.1); Chloride, Blood 105 mmol/L (98-108); Creatinine, Blood 0.86 mg/dL (0.40-1.00); Globulin, Blood 2.9 g/dL (2.2-4.0); Glomerular Filtration Rate >60 (60-); Glucose, Blood 79 mg/dL (70-99); Potassium, Blood 4.7 mmol/L (3.5-5.5); Sodium, Blood 138 mmol/L (136-145); Total Protein, Blood 5.3 g/dL (6.4-8.2)
[2018-11-23 15:07] LABS: A/G RATIO 1.2 (0.7-1.7); ALBUMIN 2.9 g/dL (2.9-4.4); ALPHA-1-GLOBULIN 0.4 g/dL (0.0-0.4); ALPHA-2-GLOBULIN 0.9 g/dL (0.4-1.0); BETA GLOBULIN 0.7 g/dL (0.7-1.3); GAMMA GLOBULIN 0.4 g/dL (0.4-1.8); GLOBULIN, TOTAL 2.4 g/dL (2.2-3.9); M-SPIKE Not Observed g/dL (Not Observed); PROTEIN, TOTAL, SERUM 5.3 g/dL (6.0-8.5)
--- NOTE | 2018-11-23 16:04 | NUR ---
SHIFT SUMMARY PT HAS HAD ONLY WATER FROM START OF SHIFT UNTIL 1300 HRS. NOW NPO. A SCHEDULED UPPER EGD IS HOPEFUL TO OCCUR @ 1700 HRS. IF NOTHING IS FOUND, A COLONOSCOPY WILL FOLLOW THE NEXT DAY POSSIBLY. WE ARE ENCOURAGING THIS PT TO AMBULATE TO THE BATHROOM WITH A FWW BEGINNING THIS EVENING IF SHE IS NOT TO WEAK. I HAVE ADMINISTERED A NEWLY ORDERED LIDOCAINE PATCH AND 25 MCG OF FENTANYL FOR PAIN. I DID GAIN PERMISSION FROM DAY SURGERY TO GIVE THE FENTANYL.
--- NOTE | 2018-11-23 18:59 | NUR ---
BROUGHT TO [facility] ADMISSION TO UNIT STARTED
--- NOTE | 2018-11-23 19:06 | NUR ---
Lungs clear T/O to Auscultation. Patient confirms NPO status and agrees with scheduled surgery.
--- NOTE | 2018-11-23 19:20 | NUR ---
11/23/181919 Manny Fregoso Bite Block PlacedPATIENT DETERMINED TO BE ASA APPROPRIATE FOR PROPOFOL SEDATION PRIOR TO START OF PROCEDURE BY 3-LEAD EKG REVIEWED WITH PHYSICIAN PRIOR TO START OF PROCEDURE.History, Chart, Medications and Allergies reviewed before start of procedure.MONITOR INTACT WITH CONTINUOUS PULSE OXIMETRY AND INTERMITTENT BP.O2 VIA N/C INTACT THROUGHOUT SEDATION/PROCEDURE.
--- NOTE | 2018-11-24 01:34 | NUR ---
11/24/18 0030 CALLED STAFFTO GET UP TO BSC TWICE IN 30 MINUTES. ONLY VOIDED 10 ML IN BSC. STATES SHE FEELS "I HAVE TO PEE." BLADDER SCAN DONE AND ONLY HAD 31 ML ON SCANNER. INFORMED PT OF RESULTS. ASSISTED HER TO BED AND ENCOURAGED HER TO TRY AND GET SOME SLEEP. SHE AGREES SHE IS TIRED AND "WILL TRY". VITALS REMAIN STABLE.
--- NOTE | 2018-11-24 01:40 | NUR ---
11/23/181954 [facility],SABRINA. PT SLEEPING BUT AROUSES EASILY. VITALS STABLE AND SMALL AMTS OF ICE CHIPS GIVEN. NO C/O PAIN OR S/S AT THIS TIME.
--- NOTE | 2018-11-24 05:28 | NUR ---
11/24/18 0528 PT TAKING ORAL LIQUIDS AND SOFT FOODS WELL THIS SHIFT. NO STOOLS THIS SHIFT. VITALS STABLE. MEDICATED FOR PAIN TWICE THIS SHIFT. UP NUMEROUS TIMES TO USE BSC FOR VOIDINGS.
[2018-11-24] MEDS ORDERED: MIRALAX17 GM PO (12:57)
[2018-11-24] MEDS ORDERED: ASCO500 PO (12:57)
[2018-11-24] MEDS ORDERED: CEFD300 PO (12:58)
[2018-11-24] MEDS ORDERED: PANT40 PO (12:58)
--- NOTE | 2018-11-24 18:48 | NUR ---
SHIFT SUMMARY PATIENT MEDICATED SEVERAL TIMES THIS SHIFT FOR PAIN. 1L/ NC PRN FOR SHORTNESS OF BREATH WITH ACTIVITY. DENIES NAUSEA. UP ONE ASSIST TO BR W/FWW. WORKED WITH PT TODAY. REQUESTS REPOSITIONING FREQUENTLY EVERY 15 MINUTES WHEN IN BED. PATIENT HAS DIFFICULTY FINDING A COMFORTABLE POSITION. [facility] CAME TO EVALUATE PATIENT FOR DISCHARGE BUT STATED THEY CANNOT TAKE PATIENT UNTIL THEY HAVE A HOSPITAL BED AND POSSIBLY EXTRA HELP FOR THE PATIENT DUE TO HER REPOSITIONING NEEDS. CALL LIGHT IN REACH.
--- NOTE | 2018-11-25 07:08 | NUR ---
SHIFT SUMMARY PATIENT CALLED STAFF TO BE REPOSITIONED EVERY 10 TO 15 MINUTES THROUGHOUT THE ENTIRE CHIEF CLOTH FINISHING RANGE OPERATOR. PATIENT PROVIDED WITH PAIN MEDICATION BUT WAS UNABLE TO FIND A COMFORTABLE POSITION. PATIENT ABLE TO WALK TO BATHROOM WITH STANDBY ASSIST AND FWW. PATIENT STATES THAT SHE IS UNABLE TO REPOSITION SELF BUT WITH ENCOURAGEMENT BY STAFF WAS ABLE TO TURN SELF IN BED.
--- NOTE | 2018-11-25 16:10 | NUR ---
SHIFT SUMMARY NO ACUTE CHANGES. PATIENT MEDICATED X1 FOR PAIN. SHORTNESS OF BREATH WITH EXERTION, 1-2 LITERS TO MAINTAIN OXYGEN SATURATION ABOVE 90%. DENIES NAUSEA. UP ONE ASSIST TO BATHROOM, UP IN CHAIR FOR MEALS. WORKED WITH PT X2 TODAY. REQUIRED REPOSITION LESS FREQUENTLY TODAY THAN YESTERDAY. CALL LIGHT IN REACH.
[2018-11-26 14:20] LABS: Stool Occult Bld Immuno 1 Negative (NEGATIVE)
--- NOTE | 2018-11-26 16:21 | NUR ---
SHIFT SUMMARY NO ACUTE CHANGES. PATIENT MEDICATED X 1 FOR PAIN. PATIENT SHORT OF BREATH WITH EXERTION, 2L NC TO MAINTAIN OXYGEN SATURATION OVER 90%. DENIES NAUSEA. PATIENT DOING BETTER WITH TOLERATING SITTING IN CHAIR AND BED LONGER TIMES. PATIENT'S DAUGHTER IN TO VISIT TODAY, DISCUSSED POSSIBLY SWITCHING THE PATIENT TO A FACILTY THAT PROVIDES TIERED LEVELS OF CARE. CALL LIGHT IN REACH.
--- NOTE | 2018-11-27 05:50 | NUR ---
SHIFT SUMMARY PATEINT REQUIRING REPOSITIONING EVERY 5 TO 15 MINUTES THROUGHOUT ENTIRE REINFORCING STEEL ERECTOR. UP 1 PERSON STANDBY ASSIST WITH FWW TO BATHROOM BUT PATIENT STATES SHE IS UNABLE TO REPOSITION HERSELF IN BED. NO IV ACCESS PER ORDER.
--- NOTE | 2018-11-27 16:46 | NUR ---
HOME O2 EVAL DONE THIS SHIFT PATIENT PREPARES TO DC. PATIENT HAS BEEN GETTIGN UP WITH SBA AND IS ABLE TO AMBULATE TO THE RESTROOM WITH HER FWW. SHE HAS BEEN ABLE TO REPOSITION HERSELF WITH ENCOURAGEMENT FROM STAFF. NO ACUTE CHANGES.
--- NOTE | 2018-11-28 17:11 | NUR ---
DISCHARGE NOTE PT DISCHARGED VIA W/C POV WITH DAUGHTER TO [facility]. PT AND FAMILY VERBALIZED UNDERSTANDING OF DISCHARGE INSTRUCTIONS AND PROVIDED HARD COPY OF NARCOTIC RX. ALL VALUABLES AND BELONGINGS RETURNED TO PT AND FAMILY. DISCHARGE PAPERWORK AND RX FAXED TO JULIA AT [facility] 2 HOURS PRIOR TO PT LEAVING HOSPITAL AND A CONFIRMATION RECEIVED.
--- NOTE | 2018-12-18 22:32 | NUR ---
LOOKED AT INFO FOR [facility] REPORT.
== END 2018-11-28 17:10 | disposition home health service (06) | DRG 193 ==
LOC: ER 20:37 → MEDS 11-17 01:23
PROVIDERS: Emergency Medicine; Hospitalist; Internal Medicine; ADMIT Internal Medicine
PROC: 0DJ08ZZ Inspection of Upper Intestinal Tract, Via Natural or Artificial Opening Endoscopic (ICD-10-PCS; principal; 2018-11-17)
PROC: 30233N1 Transfusion of Nonautologous Red Blood Cells into Peripheral Vein, Percutaneous Approach (ICD-10-PCS; 2018-11-22)
DX: J18.9 Pneumonia, unspecified organism (principal); J96.01 Acute respiratory failure with hypoxia; K22.6 Gastro-esophageal laceration-hemorrhage syndrome; S32.82XA Multiple fractures of pelvis without disruption of pelvic ring, initial encounter for closed fracture; K92.2 Gastrointestinal hemorrhage, unspecified; N39.0 Urinary tract infection, site not specified; D62 Acute posthemorrhagic anemia; B96.20 Unspecified Escherichia coli [E. coli] as the cause of diseases classified elsewhere; S32.10XS Unspecified fracture of sacrum, sequela; M85.80 Other specified disorders of bone density and structure, unspecified site; I48.0 Paroxysmal atrial fibrillation; Z79.01 Long term (current) use of anticoagulants; G25.81 Restless legs syndrome; E78.5 Hyperlipidemia, unspecified; K59.00 Constipation, unspecified; I25.10 Atherosclerotic heart disease of native coronary artery without angina pectoris; W19.XXXA Unspecified fall, initial encounter; D50.9 Iron deficiency anemia, unspecified; Z95.5 Presence of coronary angioplasty implant and graft; K20.8 Other esophagitis
CPT/HCPCS: 36415; 36430; 71045; 71046; 80048; 80053; 81001; 82274; 82728; 83540; 83550; 83735; 83880; 84100; 84165; 85014; 85018; 85025; 85027; 85045; 85610; 86850; 86900; 86901; 86922; 87077; 87086; 87186; 94640; 94760; 94761; 96365; 96375; 97110; 97116; 97161; 97165; 97530; 97535; 99284-25; J0456; J0696; J1650; J2270; J2704; J2916; J3010; J7050; J7120; P9016

== ENCOUNTER 2018-12-03 10:14 | Emergency (ER) | payer MEDICARE, OTHER ==
[~2018-12-03] VITALS: Ht 157.5 cm; Wt 59.0 kg
[~2018-12-03 10:14] MED LIST changes: +ANTACID PO; +ASCO500 PO; +Acetaminophen650 M1 PO; +CEFD300 PO; +CHOL10002 PO; +GABA100 PO; +HYDR1TAB94 PO; +MIRALAX17 GM PO; +Miacalcin I200 IU/ML INH; +Oyster Shell C500 MG PO; +PANT40 PO; +VITAMIN B12 PO
[2018-12-03 11:03] LABS: BASOPHILS ABSOLUTE AUTO 0.03 K/mm3 (0.00-0.23); BASOPHILS PERCENT AUTO 0 % (0-2); EOSINOPHILS ABSOLUTE AUTO 0.02 K/mm3 (0.00-0.68); EOSINOPHILS PERCENT AUTO 0 % (0-6); Hematocrit 38.6 % (33.0-51.0); Hemoglobin 11.4 g/dL (11.5-16.0); IMMATURE GRAN ABSOLUTE AUTO 0.27 K/mm3 (0.00-0.10); IMMATURE GRAN PERCENT AUTO 4 % (0-1); LYMPHOCYTES ABSOLUTE AUTO 0.48 K/mm3 (0.84-5.20); LYMPHOCYTES PERCENT AUTO 7 % (21-46); MONOCYTES PERCENT AUTO 5 % (4-13); Mean Corpuscular HGB 27.5 pg (26.0-34.0); Mean Corpuscular HGB Conc 29.5 g/dL (31.5-36.5); Mean Platelet Volume 9.2 fL (9.1-12.4); NEUTROPHILS ABSOLUTE AUTO 6.18 K/mm3 (1.96-9.15); NEUTROPHILS PERCENT AUTO 84 % (41-73); Platelet Count 232 K/mm3 (150-400); RDW Coefficient Variation 20.7 % (11.7-14.2); RDW Standard Deviation 69.4 fL (35.1-46.3); Red Blood Cell Count 4.15 M/mm3 (3.80-5.20); White Blood Cell Count 7.38 K/mm3 (4.00-11.30)
[2018-12-03 11:09] LABS: Mean Corpuscular Volume 93 fL (80-100)
[2018-12-03 11:23] LABS: Alanine Aminotransfer (ALT/SGP 34 U/L (12-78); Alk Phos 195 U/L (50-136); Anion Gap 8 mmol/L (6-16); Aspartate Aminotrans (AST/SGOT 30 U/L (12-37); Bilirubin, Total 0.6 mg/dL (0.1-1.0); Blood Urea Nitrogen 14 mg/dL (8-24); Bun/Creatinine Ratio 18.4 (12.0-20.0); CO2, Blood 27 mmol/L (21-32); Calcium, Blood 7.9 mg/dL (8.5-10.1); Chloride, Blood 106 mmol/L (98-108); Creatinine, Blood 0.76 mg/dL (0.40-1.00); Globulin, Blood 2.9 g/dL (2.2-4.0); Glomerular Filtration Rate >60 (60-); Glucose, Blood 201 mg/dL (70-99); Potassium, Blood 3.7 mmol/L (3.5-5.5); Sodium, Blood 141 mmol/L (136-145); Total Protein, Blood 5.9 g/dL (6.4-8.2); Troponin I <0.015 ng/mL (0.000-0.040)
[2018-12-03] MEDS ORDERED: Ventolin/Prove6.7 GM INH (13:03)
[2018-12-03] MEDS ORDERED: K-Dur20 MEQ PO (13:15)
[2018-12-03] MEDS ORDERED: Lasix20 MG PO (13:15)
== END 2018-12-03 13:37 | disposition home or self-care (01) ==
LOC: ER 10:14
PROVIDERS: Emergency Medicine
DX: J44.1 Chronic obstructive pulmonary disease with (acute) exacerbation (principal); I50.9 Heart failure, unspecified; I48.91 Unspecified atrial fibrillation; Z87.891 Personal history of nicotine dependence
CPT/HCPCS: 36415; 71046; 80053; 83880; 84145; 84484; 85025; 93005; 93010; 96374; 99284-25; J1940

== ENCOUNTER → 2018-12-08 | Outpatient (CLI) | payer MEDICARE, OTHER ==
[~2018-12-08] MED LIST changes: +K-Dur20 MEQ PO; +Lasix20 MG PO; +Ventolin/Prove6.7 GM INH
[2018-12-08 15:14] LABS: Appearance, Urine Clear (Clear); Bilirubin, Urine Neg (Neg); Blood, Urine Neg (Neg); Color, Urine Yellow (P-Yellow); Glucose Qualitative, Urine Neg (Neg); Ketones, Urine Neg (Neg); Leukocyte Esterase, Urine Neg (Neg); Nitrite, Urine Neg (Neg); Protein, Urine Neg (Neg); Urobilinogen, Urine NORM (Normal)
== END | disposition home or self-care (01) ==
LOC: LAB 14:04 → LAB SHORT 14:04
PROVIDERS: Family Medicine
DX: R30.0 Dysuria (principal)
CPT/HCPCS: 81003

== ENCOUNTER → 2019-03-06 | Outpatient (CLI) | payer MEDICARE, OTHER | END | disposition home or self-care (01) | LOC: LAB SHORT 15:11 → LAB 15:11 | DX: S81.801D Unspecified open wound, right lower leg, subsequent encounter (principal) | CPT/HCPCS: 87070; 87077; 87106; 87186; 87205 ==

== ENCOUNTER 2019-03-22 09:05 | Day surgery (SDC) | payer MEDICARE, OTHER ==
[2019-05-09] MEDS ORDERED: Aspir 8181 MG PO (12:04)
[2019-05-09] MEDS ORDERED: SERT25 PO (12:04)
[2019-05-09] MEDS ORDERED: LORA.5 PO (12:04)
[2019-05-09] MEDS ORDERED: PANT40 PO (12:07)
== END 2019-03-22 22:51 | disposition home or self-care (01) ==
LOC: WOUND 09:05
DX: S81.801A Unspecified open wound, right lower leg, initial encounter (principal); I96 Gangrene, not elsewhere classified; L97.212 Non-pressure chronic ulcer of right calf with fat layer exposed; E78.00 Pure hypercholesterolemia, unspecified; I10 Essential (primary) hypertension; G25.81 Restless legs syndrome; I48.91 Unspecified atrial fibrillation; G25.0 Essential tremor; D64.9 Anemia, unspecified; J44.9 Chronic obstructive pulmonary disease, unspecified; M06.9 Rheumatoid arthritis, unspecified; G40.909 Epilepsy, unspecified, not intractable, without status epilepticus; F41.9 Anxiety disorder, unspecified; R62.7 Adult failure to thrive; Z68.24 Body mass index [BMI] 24.0-24.9, adult; Z87.891 Personal history of nicotine dependence; Z88.2 Allergy status to sulfonamides; Z79.51 Long term (current) use of inhaled steroids; Z79.899 Other long term (current) drug therapy; X58.XXXA Exposure to other specified factors, initial encounter
CPT/HCPCS: G0463

== ENCOUNTER 2019-03-27 12:43 | Day surgery (SDC) | payer MEDICARE, OTHER ==
[2019-05-09] MEDS ORDERED: LORA.5 PO (12:04)
[2019-05-09] MEDS ORDERED: Aspir 8181 MG PO (12:04)
[2019-05-09] MEDS ORDERED: SERT25 PO (12:04)
[2019-05-09] MEDS ORDERED: PANT40 PO (12:07)
== END 2019-03-27 23:32 | disposition home or self-care (01) ==
LOC: WOUND 12:43
DX: S81.801A Unspecified open wound, right lower leg, initial encounter (principal); I96 Gangrene, not elsewhere classified; I10 Essential (primary) hypertension; E78.00 Pure hypercholesterolemia, unspecified; G25.81 Restless legs syndrome; I48.91 Unspecified atrial fibrillation; G25.0 Essential tremor; F41.9 Anxiety disorder, unspecified; D64.9 Anemia, unspecified; J44.9 Chronic obstructive pulmonary disease, unspecified; I49.9 Cardiac arrhythmia, unspecified; M06.9 Rheumatoid arthritis, unspecified; G40.909 Epilepsy, unspecified, not intractable, without status epilepticus; Z88.2 Allergy status to sulfonamides; Z79.899 Other long term (current) drug therapy; X58.XXXA Exposure to other specified factors, initial encounter

== ENCOUNTER 2019-04-03 12:00 | Day surgery (SDC) | payer MEDICARE, OTHER ==
[2019-05-09] MEDS ORDERED: LORA.5 PO (12:04)
[2019-05-09] MEDS ORDERED: Aspir 8181 MG PO (12:04)
[2019-05-09] MEDS ORDERED: SERT25 PO (12:04)
[2019-05-09] MEDS ORDERED: PANT40 PO (12:07)
== END 2019-04-03 22:49 | disposition home or self-care (01) ==
LOC: WOUND 12:00
DX: L97.822 Non-pressure chronic ulcer of other part of left lower leg with fat layer exposed (principal); I10 Essential (primary) hypertension; E78.00 Pure hypercholesterolemia, unspecified; Z79.899 Other long term (current) drug therapy
CPT/HCPCS: G0463

== ENCOUNTER 2019-04-10 14:09 | Day surgery (SDC) | payer MEDICARE, OTHER ==
[2019-05-09] MEDS ORDERED: LORA.5 PO (12:04)
[2019-05-09] MEDS ORDERED: Aspir 8181 MG PO (12:04)
[2019-05-09] MEDS ORDERED: SERT25 PO (12:04)
[2019-05-09] MEDS ORDERED: PANT40 PO (12:07)
== END 2019-04-10 22:35 | disposition home or self-care (01) ==
LOC: WOUND 14:09
DX: S81.801A Unspecified open wound, right lower leg, initial encounter (principal); I96 Gangrene, not elsewhere classified; L97.812 Non-pressure chronic ulcer of other part of right lower leg with fat layer exposed; I10 Essential (primary) hypertension; E78.00 Pure hypercholesterolemia, unspecified; G25.81 Restless legs syndrome; I48.91 Unspecified atrial fibrillation; G25.0 Essential tremor; F41.9 Anxiety disorder, unspecified; D64.9 Anemia, unspecified; J44.9 Chronic obstructive pulmonary disease, unspecified; M06.9 Rheumatoid arthritis, unspecified; G40.909 Epilepsy, unspecified, not intractable, without status epilepticus; J32.9 Chronic sinusitis, unspecified; R62.7 Adult failure to thrive; Z68.24 Body mass index [BMI] 24.0-24.9, adult; Z88.2 Allergy status to sulfonamides; Z79.51 Long term (current) use of inhaled steroids; Z79.899 Other long term (current) drug therapy; X58.XXXA Exposure to other specified factors, initial encounter

== ENCOUNTER 2019-04-17 08:46 | Day surgery (SDC) | payer MEDICARE, OTHER ==
[2019-05-09] MEDS ORDERED: Aspir 8181 MG PO (12:04)
[2019-05-09] MEDS ORDERED: SERT25 PO (12:04)
[2019-05-09] MEDS ORDERED: LORA.5 PO (12:04)
[2019-05-09] MEDS ORDERED: PANT40 PO (12:07)
== END 2019-04-17 22:42 | disposition home or self-care (01) ==
LOC: WOUND 08:46
DX: I96 Gangrene, not elsewhere classified (principal); L97.212 Non-pressure chronic ulcer of right calf with fat layer exposed; L97.312 Non-pressure chronic ulcer of right ankle with fat layer exposed; L97.812 Non-pressure chronic ulcer of other part of right lower leg with fat layer exposed; D64.9 Anemia, unspecified; J44.9 Chronic obstructive pulmonary disease, unspecified; M06.9 Rheumatoid arthritis, unspecified; G40.909 Epilepsy, unspecified, not intractable, without status epilepticus; I49.9 Cardiac arrhythmia, unspecified; J32.9 Chronic sinusitis, unspecified; E78.00 Pure hypercholesterolemia, unspecified; M85.80 Other specified disorders of bone density and structure, unspecified site; G25.81 Restless legs syndrome; I10 Essential (primary) hypertension; I48.91 Unspecified atrial fibrillation; G25.0 Essential tremor; F41.9 Anxiety disorder, unspecified; R62.7 Adult failure to thrive; Z68.24 Body mass index [BMI] 24.0-24.9, adult; Z88.2 Allergy status to sulfonamides; Z79.899 Other long term (current) drug therapy
CPT/HCPCS: 87070; 87075; 87077; 87106; 87186; 87205

== ENCOUNTER 2019-04-24 00:14 | Day surgery (SDC) | payer MEDICARE, OTHER ==
[2019-05-09] MEDS ORDERED: LORA.5 PO (12:04)
[2019-05-09] MEDS ORDERED: Aspir 8181 MG PO (12:04)
[2019-05-09] MEDS ORDERED: SERT25 PO (12:04)
[2019-05-09] MEDS ORDERED: PANT40 PO (12:07)
== END 2019-04-24 23:01 | disposition home or self-care (01) ==
LOC: WOUND 00:14
DX: L97.822 Non-pressure chronic ulcer of other part of left lower leg with fat layer exposed (principal); E78.00 Pure hypercholesterolemia, unspecified; I10 Essential (primary) hypertension; F41.9 Anxiety disorder, unspecified; Z79.899 Other long term (current) drug therapy

== ENCOUNTER 2019-05-01 00:19 | Day surgery (SDC) | payer MEDICARE, OTHER ==
[2019-05-09] MEDS ORDERED: SERT25 PO (12:04)
[2019-05-09] MEDS ORDERED: Aspir 8181 MG PO (12:04)
[2019-05-09] MEDS ORDERED: LORA.5 PO (12:04)
[2019-05-09] MEDS ORDERED: PANT40 PO (12:07)
== END 2019-05-01 22:46 | disposition home or self-care (01) ==
LOC: WOUND 00:19
DX: S81.801D Unspecified open wound, right lower leg, subsequent encounter (principal); S91.301D Unspecified open wound, right foot, subsequent encounter; I73.9 Peripheral vascular disease, unspecified

== ENCOUNTER 2019-05-08 00:14 | Day surgery (SDC) | payer MEDICARE, OTHER ==
[2019-05-09] MEDS ORDERED: LORA.5 PO (12:04)
[2019-05-09] MEDS ORDERED: Aspir 8181 MG PO (12:04)
[2019-05-09] MEDS ORDERED: SERT25 PO (12:04)
[2019-05-09] MEDS ORDERED: PANT40 PO (12:07)
== END 2019-05-08 22:52 | disposition home or self-care (01) ==
LOC: WOUND 00:14
DX: L97.822 Non-pressure chronic ulcer of other part of left lower leg with fat layer exposed (principal); I73.9 Peripheral vascular disease, unspecified; I10 Essential (primary) hypertension; E78.00 Pure hypercholesterolemia, unspecified; Z79.899 Other long term (current) drug therapy
CPT/HCPCS: G0463

== ENCOUNTER 2019-05-10 06:11 | Day surgery (SDC) | payer MEDICARE, OTHER ==
[~2019-05-10] VITALS: Ht 154.9 cm; Wt 56.0 kg
[~2019-05-10 06:11] MED LIST changes: +Aspir 8181 MG PO; +LORA.5 PO; +SERT25 PO
--- NOTE | 2019-05-10 12:52 | NUR ---
PT DAUGHTER HERE WITH PT, DISCHARGE GONE OVER WITH PT AND DAUGHTER. BOTH VERBALIZE UNDERSTANDING OF INSTRUCTIONS. SALINE LOCK OUT WITH CATHETER INTACT. LEFT FEM SITE WITHOUT HEMATOMA, SWELLING, OR TENDERNESS. REMAINS SOFT. PT TO GET RIDE WITH [facility]. DAUGHTER WHEELED PT TO RIDE SERVICE PER PT OWN W/C.
== END 2019-05-10 11:39 | disposition home or self-care (01) ==
LOC: MHTC 06:11
DX: I70.239 Atherosclerosis of native arteries of right leg with ulceration of unspecified site (principal); I70.202 Unspecified atherosclerosis of native arteries of extremities, left leg; L97.219 Non-pressure chronic ulcer of right calf with unspecified severity; I10 Essential (primary) hypertension; E78.00 Pure hypercholesterolemia, unspecified; Z87.891 Personal history of nicotine dependence; Z88.2 Allergy status to sulfonamides; Z79.899 Other long term (current) drug therapy; Z79.82 Long term (current) use of aspirin
CPT/HCPCS: 37225; 37228; 75625; 75716; 75774; 99152; 99153; C1714; C1725; C1769; C1884; C1887; C1894; C2623; J1644; J2250; J3010; J7030; Q9967

== ENCOUNTER 2019-05-15 00:15 | Day surgery (SDC) | payer MEDICARE, OTHER | END 2019-05-15 22:57 | disposition home or self-care (01) | LOC: WOUND 00:15 | DX: L97.822 Non-pressure chronic ulcer of other part of left lower leg with fat layer exposed (principal); I73.9 Peripheral vascular disease, unspecified; E78.00 Pure hypercholesterolemia, unspecified; I10 Essential (primary) hypertension; Z79.899 Other long term (current) drug therapy; Z79.82 Long term (current) use of aspirin ==

== ENCOUNTER 2019-05-22 00:14 | Day surgery (SDC) | payer MEDICARE, OTHER | END 2019-05-22 23:00 | disposition home or self-care (01) | LOC: WOUND 00:14 | DX: L97.822 Non-pressure chronic ulcer of other part of left lower leg with fat layer exposed (principal); I73.9 Peripheral vascular disease, unspecified ==

== ENCOUNTER → 2019-05-29 | Day surgery (SDC) | payer MEDICARE, OTHER | LOC: WOUND 00:18 | DX: L97.822 Non-pressure chronic ulcer of other part of left lower leg with fat layer exposed (principal); I73.9 Peripheral vascular disease, unspecified; E78.00 Pure hypercholesterolemia, unspecified; I10 Essential (primary) hypertension; F41.9 Anxiety disorder, unspecified; Z79.899 Other long term (current) drug therapy; Z79.82 Long term (current) use of aspirin | CPT/HCPCS: 87071; 87075; 87077; 87186; 87205 ==

== ENCOUNTER 2019-06-05 02:02 | Day surgery (SDC) | payer MEDICARE, OTHER | END 2019-06-05 23:41 | disposition home or self-care (01) | LOC: WOUND 02:02 | DX: L97.822 Non-pressure chronic ulcer of other part of left lower leg with fat layer exposed (principal); I73.9 Peripheral vascular disease, unspecified; E78.00 Pure hypercholesterolemia, unspecified; I10 Essential (primary) hypertension; Z79.899 Other long term (current) drug therapy; Z79.82 Long term (current) use of aspirin ==

== ENCOUNTER 2019-06-12 00:38 | Day surgery (SDC) | payer MEDICARE, OTHER | END 2019-06-12 12:00 | disposition home or self-care (01) | LOC: WOUND 00:38 | DX: L97.812 Non-pressure chronic ulcer of other part of right lower leg with fat layer exposed (principal); L89.612 Pressure ulcer of right heel, stage 2; S91.101D Unspecified open wound of right great toe without damage to nail, subsequent encounter; I73.9 Peripheral vascular disease, unspecified; E78.00 Pure hypercholesterolemia, unspecified; I10 Essential (primary) hypertension; Z79.899 Other long term (current) drug therapy; Z79.82 Long term (current) use of aspirin ==

== ENCOUNTER 2019-06-19 00:11 | Day surgery (SDC) | payer MEDICARE, OTHER | END 2019-06-19 22:50 | disposition home or self-care (01) | LOC: WOUND 00:11 | DX: L97.812 Non-pressure chronic ulcer of other part of right lower leg with fat layer exposed (principal); L89.510 Pressure ulcer of right ankle, unstageable; L89.612 Pressure ulcer of right heel, stage 2; S91.101D Unspecified open wound of right great toe without damage to nail, subsequent encounter; I73.9 Peripheral vascular disease, unspecified; E78.00 Pure hypercholesterolemia, unspecified; I10 Essential (primary) hypertension; F41.9 Anxiety disorder, unspecified; Z79.899 Other long term (current) drug therapy; Z79.82 Long term (current) use of aspirin ==

== ENCOUNTER 2019-06-26 00:21 | Day surgery (SDC) | payer MEDICARE, OTHER | END 2019-06-26 22:49 | disposition home or self-care (01) | LOC: WOUND 00:21 | DX: L97.812 Non-pressure chronic ulcer of other part of right lower leg with fat layer exposed (principal); L89.510 Pressure ulcer of right ankle, unstageable; L89.612 Pressure ulcer of right heel, stage 2; S91.101D Unspecified open wound of right great toe without damage to nail, subsequent encounter; I73.9 Peripheral vascular disease, unspecified; E78.00 Pure hypercholesterolemia, unspecified; I10 Essential (primary) hypertension; F41.9 Anxiety disorder, unspecified; Z79.899 Other long term (current) drug therapy; Z79.82 Long term (current) use of aspirin ==

== ENCOUNTER → 2019-07-07 | Outpatient (CLI) | payer MEDICARE, OTHER ==
[2019-07-07 13:23] LABS: BASOPHILS ABSOLUTE AUTO 0.05 K/mm3 (0.00-0.23); BASOPHILS PERCENT AUTO 0 % (0-2); EOSINOPHILS ABSOLUTE AUTO 0.06 K/mm3 (0.00-0.68); EOSINOPHILS PERCENT AUTO 1 % (0-6); Hematocrit 31.9 % (33.0-51.0); Hemoglobin 10.6 g/dL (11.5-16.0); IMMATURE GRAN ABSOLUTE AUTO 0.16 K/mm3 (0.00-0.10); IMMATURE GRAN PERCENT AUTO 1 % (0-1); LYMPHOCYTES ABSOLUTE AUTO 1.01 K/mm3 (0.84-5.20); LYMPHOCYTES PERCENT AUTO 8 % (21-46); MONOCYTES ABSOLUTE AUTO 1.25 K/mm3 (0.16-1.47); MONOCYTES PERCENT AUTO 10 % (4-13); Mean Corpuscular HGB 28.5 pg (26.0-34.0); Mean Corpuscular HGB Conc 33.2 g/dL (31.5-36.5); Mean Corpuscular Volume 86 fL (80-100); Mean Platelet Volume 8.2 fL (9.1-12.4); NEUTROPHILS ABSOLUTE AUTO 10.18 K/mm3 (1.96-9.15); NEUTROPHILS PERCENT AUTO 80 % (41-73); Platelet Count 294 K/mm3 (150-400); RDW Coefficient Variation 14.5 % (11.7-14.2); Red Blood Cell Count 3.72 M/mm3 (3.80-5.20); White Blood Cell Count 12.71 K/mm3 (4.00-11.30)
[2019-07-07 13:36] LABS: Albumin/Globulin Ratio 0.7 (0.8-1.8); Bilirubin, Total 0.4 mg/dL (0.1-1.0); Bun/Creatinine Ratio 18.8 (12.0-20.0); Calcium, Blood 8.9 mg/dL (8.5-10.1); Creatinine, Blood 1.12 mg/dL (0.40-1.00); Globulin, Blood 4.2 g/dL (2.2-4.0); Potassium, Blood 5.1 mmol/L (3.5-5.5); Total Protein, Blood 7.2 g/dL (6.4-8.2)
== END | disposition home or self-care (01) ==
LOC: LAB EV 13:12 → LAB SHORT 13:12
PROVIDERS: Physician Assistant
DX: S81.801A Unspecified open wound, right lower leg, initial encounter (principal)
CPT/HCPCS: 80053; 85025; 87070; 87077; 87147; 87186; 87205

== ENCOUNTER 2019-07-10 00:06 | Day surgery (SDC) | payer MEDICARE, OTHER | END 2019-07-10 22:49 | disposition home or self-care (01) | LOC: WOUND 00:06 | DX: L97.812 Non-pressure chronic ulcer of other part of right lower leg with fat layer exposed (principal); L89.510 Pressure ulcer of right ankle, unstageable; L89.612 Pressure ulcer of right heel, stage 2; S91.101D Unspecified open wound of right great toe without damage to nail, subsequent encounter; I73.9 Peripheral vascular disease, unspecified; I10 Essential (primary) hypertension; F41.9 Anxiety disorder, unspecified; E78.00 Pure hypercholesterolemia, unspecified; Z79.899 Other long term (current) drug therapy ==

== ENCOUNTER 2019-07-13 01:12 | Day surgery (SDC) | payer MEDICARE, OTHER | END 2019-07-13 22:59 | disposition home or self-care (01) | LOC: WOUND 01:12 | DX: L97.812 Non-pressure chronic ulcer of other part of right lower leg with fat layer exposed (principal); L89.510 Pressure ulcer of right ankle, unstageable; L89.612 Pressure ulcer of right heel, stage 2; S91.101D Unspecified open wound of right great toe without damage to nail, subsequent encounter; I73.9 Peripheral vascular disease, unspecified; E78.00 Pure hypercholesterolemia, unspecified; I10 Essential (primary) hypertension; F41.9 Anxiety disorder, unspecified; Z79.899 Other long term (current) drug therapy ==

== ENCOUNTER 2019-07-17 00:38 | Day surgery (SDC) | payer MEDICARE, OTHER | END 2019-07-17 22:49 | disposition home or self-care (01) | LOC: WOUND 00:38 | DX: L97.812 Non-pressure chronic ulcer of other part of right lower leg with fat layer exposed (principal); L89.510 Pressure ulcer of right ankle, unstageable; L89.612 Pressure ulcer of right heel, stage 2; S91.101D Unspecified open wound of right great toe without damage to nail, subsequent encounter; I73.9 Peripheral vascular disease, unspecified ==

== ENCOUNTER 2019-07-24 00:10 | Day surgery (SDC) | payer MEDICARE, OTHER | END 2019-07-24 22:55 | disposition home or self-care (01) | LOC: WOUND 00:10 | DX: L97.812 Non-pressure chronic ulcer of other part of right lower leg with fat layer exposed (principal); L89.510 Pressure ulcer of right ankle, unstageable; L89.612 Pressure ulcer of right heel, stage 2; S91.101D Unspecified open wound of right great toe without damage to nail, subsequent encounter; I73.9 Peripheral vascular disease, unspecified; E78.00 Pure hypercholesterolemia, unspecified; I10 Essential (primary) hypertension; F41.9 Anxiety disorder, unspecified; Z79.899 Other long term (current) drug therapy; Z79.82 Long term (current) use of aspirin ==

== ENCOUNTER 2019-07-31 00:20 | Day surgery (SDC) | payer MEDICARE, OTHER | END 2019-07-31 22:51 | disposition home or self-care (01) | LOC: WOUND 00:20 | DX: L89.893 Pressure ulcer of other site, stage 3 (principal); L89.153 Pressure ulcer of sacral region, stage 3; L89.612 Pressure ulcer of right heel, stage 2; L89.312 Pressure ulcer of right buttock, stage 2; L89.512 Pressure ulcer of right ankle, stage 2; L97.812 Non-pressure chronic ulcer of other part of right lower leg with fat layer exposed; S91.101D Unspecified open wound of right great toe without damage to nail, subsequent encounter; I73.9 Peripheral vascular disease, unspecified ==

== ENCOUNTER 2019-08-07 00:28 | Day surgery (SDC) | payer MEDICARE, OTHER | END 2019-08-07 22:37 | disposition home or self-care (01) | LOC: WOUND 00:28 | DX: L89.153 Pressure ulcer of sacral region, stage 3 (principal); L97.812 Non-pressure chronic ulcer of other part of right lower leg with fat layer exposed; L89.612 Pressure ulcer of right heel, stage 2; L89.312 Pressure ulcer of right buttock, stage 2; L89.322 Pressure ulcer of left buttock, stage 2; S91.102A Unspecified open wound of left great toe without damage to nail, initial encounter; S91.101D Unspecified open wound of right great toe without damage to nail, subsequent encounter; I73.9 Peripheral vascular disease, unspecified ==

== ENCOUNTER 2019-08-14 00:12 | Day surgery (SDC) | payer MEDICARE, OTHER | END 2019-08-14 22:36 | disposition home or self-care (01) | LOC: WOUND 00:12 | DX: L03.031 Cellulitis of right toe (principal); L97.812 Non-pressure chronic ulcer of other part of right lower leg with fat layer exposed; L89.612 Pressure ulcer of right heel, stage 2; L89.312 Pressure ulcer of right buttock, stage 2; L89.322 Pressure ulcer of left buttock, stage 2; S91.101D Unspecified open wound of right great toe without damage to nail, subsequent encounter; S91.102D Unspecified open wound of left great toe without damage to nail, subsequent encounter; I73.9 Peripheral vascular disease, unspecified; E78.00 Pure hypercholesterolemia, unspecified; I10 Essential (primary) hypertension; Z79.899 Other long term (current) drug therapy; Z79.82 Long term (current) use of aspirin | CPT/HCPCS: G0463 ==

== ENCOUNTER 2019-08-30 08:32 | Day surgery (SDC) | payer MEDICARE, OTHER | END 2019-08-30 23:22 | disposition home or self-care (01) | LOC: WOUND 08:32 | DX: L03.031 Cellulitis of right toe (principal); L97.812 Non-pressure chronic ulcer of other part of right lower leg with fat layer exposed; L89.612 Pressure ulcer of right heel, stage 2; L89.312 Pressure ulcer of right buttock, stage 2; L89.322 Pressure ulcer of left buttock, stage 2; S91.101D Unspecified open wound of right great toe without damage to nail, subsequent encounter; S91.102D Unspecified open wound of left great toe without damage to nail, subsequent encounter; I73.9 Peripheral vascular disease, unspecified; E78.00 Pure hypercholesterolemia, unspecified; I10 Essential (primary) hypertension; F41.9 Anxiety disorder, unspecified; Z79.899 Other long term (current) drug therapy; Z79.82 Long term (current) use of aspirin | CPT/HCPCS: 87070; 87071; 87075; 87106; 87205 ==

== ENCOUNTER 2019-09-04 00:14 | Day surgery (SDC) | payer MEDICARE, OTHER | END 2019-09-04 22:51 | disposition home or self-care (01) | LOC: WOUND 00:14 | DX: M86.19 Other acute osteomyelitis, multiple sites (principal); B37.9 Candidiasis, unspecified; L97.812 Non-pressure chronic ulcer of other part of right lower leg with fat layer exposed; L89.312 Pressure ulcer of right buttock, stage 2; L89.612 Pressure ulcer of right heel, stage 2; S91.101D Unspecified open wound of right great toe without damage to nail, subsequent encounter; L89.322 Pressure ulcer of left buttock, stage 2; I73.9 Peripheral vascular disease, unspecified; E78.00 Pure hypercholesterolemia, unspecified; I10 Essential (primary) hypertension; F41.9 Anxiety disorder, unspecified; Z79.899 Other long term (current) drug therapy; Z79.82 Long term (current) use of aspirin ==

== ENCOUNTER 2019-09-11 00:29 | Day surgery (SDC) | payer MEDICARE, OTHER | END 2019-09-11 22:51 | disposition home or self-care (01) | LOC: WOUND 00:29 | DX: M86.19 Other acute osteomyelitis, multiple sites (principal); B37.9 Candidiasis, unspecified; L97.812 Non-pressure chronic ulcer of other part of right lower leg with fat layer exposed; L89.612 Pressure ulcer of right heel, stage 2; L89.312 Pressure ulcer of right buttock, stage 2; S91.101D Unspecified open wound of right great toe without damage to nail, subsequent encounter; L89.322 Pressure ulcer of left buttock, stage 2; S91.102A Unspecified open wound of left great toe without damage to nail, initial encounter; X58.XXXD Exposure to other specified factors, subsequent encounter ==

== ENCOUNTER 2019-09-18 00:12 | Day surgery (SDC) | payer MEDICARE, OTHER | END 2019-09-18 23:02 | disposition home or self-care (01) | LOC: WOUND 00:12 | DX: M86.19 Other acute osteomyelitis, multiple sites (principal); B37.9 Candidiasis, unspecified; L97.812 Non-pressure chronic ulcer of other part of right lower leg with fat layer exposed; L89.612 Pressure ulcer of right heel, stage 2; S91.101D Unspecified open wound of right great toe without damage to nail, subsequent encounter; S91.102D Unspecified open wound of left great toe without damage to nail, subsequent encounter; I73.9 Peripheral vascular disease, unspecified; E78.00 Pure hypercholesterolemia, unspecified; F41.9 Anxiety disorder, unspecified; I10 Essential (primary) hypertension; Z79.899 Other long term (current) drug therapy; Z79.82 Long term (current) use of aspirin ==

== ENCOUNTER 2019-09-25 00:28 | Day surgery (SDC) | payer MEDICARE, OTHER | END 2019-09-25 22:36 | disposition home or self-care (01) | LOC: WOUND 00:28 | DX: M86.19 Other acute osteomyelitis, multiple sites (principal); B37.9 Candidiasis, unspecified; L97.812 Non-pressure chronic ulcer of other part of right lower leg with fat layer exposed; L89.612 Pressure ulcer of right heel, stage 2; S91.101D Unspecified open wound of right great toe without damage to nail, subsequent encounter; S91.102D Unspecified open wound of left great toe without damage to nail, subsequent encounter; I73.9 Peripheral vascular disease, unspecified; I10 Essential (primary) hypertension; I48.91 Unspecified atrial fibrillation | CPT/HCPCS: 87071; 87075; 87205 ==

== ENCOUNTER 2019-10-02 00:22 | Day surgery (SDC) | payer MEDICARE, OTHER | END 2019-10-02 23:13 | disposition home or self-care (01) | LOC: WOUND 00:22 | DX: M86.19 Other acute osteomyelitis, multiple sites (principal); B37.9 Candidiasis, unspecified; L97.812 Non-pressure chronic ulcer of other part of right lower leg with fat layer exposed; L89.612 Pressure ulcer of right heel, stage 2; S91.101D Unspecified open wound of right great toe without damage to nail, subsequent encounter; S91.102D Unspecified open wound of left great toe without damage to nail, subsequent encounter; I73.9 Peripheral vascular disease, unspecified ==

== ENCOUNTER 2019-10-16 00:08 | Day surgery (SDC) | payer MEDICARE, OTHER | END 2019-10-16 22:39 | disposition home or self-care (01) | LOC: WOUND 00:08 | DX: M86.19 Other acute osteomyelitis, multiple sites (principal); B37.9 Candidiasis, unspecified; L97.812 Non-pressure chronic ulcer of other part of right lower leg with fat layer exposed; L89.612 Pressure ulcer of right heel, stage 2; S91.101D Unspecified open wound of right great toe without damage to nail, subsequent encounter; S91.102D Unspecified open wound of left great toe without damage to nail, subsequent encounter; I73.9 Peripheral vascular disease, unspecified; Z79.899 Other long term (current) drug therapy ==

== ENCOUNTER → 2020-05-27 | Outpatient (CLI) | payer MEDICARE, OTHER ==
[~2020-05-27] MED LIST changes: +POTA10T PO
[2020-05-27 16:01] LABS: Appearance, Urine Cloudy (Clear); Bilirubin, Urine Neg (Neg); Blood, Urine 2+ (Neg); Color, Urine Yellow (P-Yellow); Glucose Qualitative, Urine Neg (Neg); Ketones, Urine Neg (Neg); Leukocyte Esterase, Urine 3+ (Neg); Nitrite, Urine Pos (Neg); Protein, Urine 1+ (Neg); Specific Gravity, Urine 1.015 (1.003-1.022); Urobilinogen, Urine NORM (Normal)
[2020-05-27 16:19] LABS: White Blood Cells, Urine TNTC /hpf (0-5)
[2020-05-27 16:20] LABS: Bacteria Many /hpf; Squamous Epithelial Cells Few /hpf (Few)
== END | disposition home or self-care (01) ==
LOC: LAB 14:15 → LAB SHORT 14:15
PROVIDERS: Nurse Practitioner Family
DX: N39.0 Urinary tract infection, site not specified (principal)
CPT/HCPCS: 81001; 87077; 87086; 87186

== ENCOUNTER → 2020-06-04 | Outpatient (CLI) | payer MEDICARE, OTHER ==
[2020-06-04 13:42] LABS: Appearance, Urine Clear (Clear); Bilirubin, Urine Neg (Neg); Blood, Urine Neg (Neg); Color, Urine Yellow (P-Yellow); Glucose Qualitative, Urine Neg (Neg); Ketones, Urine Neg (Neg); Leukocyte Esterase, Urine Neg (Neg); Nitrite, Urine Neg (Neg); Protein, Urine Neg (Neg); Urobilinogen, Urine NORM (Normal)
== END | disposition home or self-care (01) ==
LOC: LAB SHORT 11:13 → PLD 11:13
PROVIDERS: Nurse Practitioner Family
DX: N39.0 Urinary tract infection, site not specified (principal)
CPT/HCPCS: 81003

== ENCOUNTER → 2020-08-21 | Outpatient (CLI) | payer MEDICARE, OTHER ==
[2020-08-21 18:04] LABS: Appearance, Urine Cloudy (Clear); Bilirubin, Urine Neg (Neg); Blood, Urine 2+ (Neg); Color, Urine Yellow (P-Yellow); Glucose Qualitative, Urine Neg (Neg); Ketones, Urine Neg (Neg); Leukocyte Esterase, Urine 3+ (Neg); Nitrite, Urine Neg (Neg); Protein, Urine 1+ (Neg); Urobilinogen, Urine NORM (Normal)
[2020-08-21 18:32] LABS: Bacteria Many /hpf; Red Blood Cells, Urine 0-2 /hpf (0-2); Squamous Epithelial Cells Few /hpf (Few); White Blood Cells, Urine TNTC /hpf (0-5)
== END | disposition home or self-care (01) ==
LOC: LAB SHORT 16:16 → LAB 16:16
PROVIDERS: Nurse Practitioner Family
DX: N39.0 Urinary tract infection, site not specified (principal)
CPT/HCPCS: 81001; 87086

== ENCOUNTER → 2020-11-07 | Outpatient (CLI) | payer MEDICARE, OTHER ==
[2020-11-07 09:51] LABS: Appearance, Urine Turbid (Clear); Bilirubin, Urine Neg (Neg); Blood, Urine 2+ (Neg); Color, Urine Yellow (P-Yellow); Glucose Qualitative, Urine Neg (Neg); Ketones, Urine Neg (Neg); Leukocyte Esterase, Urine 3+ (Neg); Nitrite, Urine Neg (Neg); Protein, Urine 2+ (Neg); Urobilinogen, Urine NORM (Normal)
[2020-11-07 10:32] LABS: White Blood Cells, Urine TNTC /hpf (0-5)
[2020-11-07 10:33] LABS: Bacteria Many /hpf; Calcium Oxalate Crystals Few /hpf; Red Blood Cells, Urine 0-2 /hpf (0-2); Squamous Epithelial Cells Few /hpf (Few)
== END ==
LOC: LAB 07:21 → LAB SHORT 07:21
PROVIDERS: Nurse Practitioner Family
DX: N39.0 Urinary tract infection, site not specified (principal); Z88.2 Allergy status to sulfonamides
CPT/HCPCS: 81001; 87086

== ENCOUNTER → 2021-02-16 | Outpatient (CLI) | payer MEDICARE, OTHER ==
[2021-02-16 10:39] LABS: Bilirubin, Urine Neg (Neg); Blood, Urine 2+ (Neg); Glucose Qualitative, Urine Neg (Neg); Ketones, Urine Neg (Neg); Leukocyte Esterase, Urine 3+ (Neg); Nitrite, Urine Neg (Neg); Protein, Urine 2+ (Neg); Specific Gravity, Urine 1.015 (1.003-1.022); Urobilinogen, Urine NORM (Normal)
[2021-02-16 11:03] LABS: Appearance, Urine Hazy (Clear); Color, Urine Yellow (P-Yellow)
[2021-02-16 11:08] LABS: White Blood Cells, Urine 50-100 /hpf (0-5)
[2021-02-16 11:09] LABS: Red Blood Cells, Urine 0-2 /hpf (0-2); Squamous Epithelial Cells Few /hpf (Few)
[2021-02-16 11:10] LABS: Bacteria Many /hpf; Mucus Heavy (0-Heavy)
== END | disposition home or self-care (01) ==
LOC: LAB SHORT 10:02
PROVIDERS: Nurse Practitioner Family
DX: R30.0 Dysuria (principal)
CPT/HCPCS: 81001; 87077; 87086; 87186

== ENCOUNTER → 2021-03-27 | Outpatient (CLI) | payer MEDICARE, OTHER ==
[2021-03-27 15:56] LABS: BASOPHILS ABSOLUTE AUTO 0.07 K/mm3 (0.00-0.23); BASOPHILS PERCENT AUTO 1 % (0-2); EOSINOPHILS ABSOLUTE AUTO 0.05 K/mm3 (0.00-0.68); EOSINOPHILS PERCENT AUTO 1 % (0-6); Hemoglobin 11.9 g/dL (11.5-16.0); IMMATURE GRAN ABSOLUTE AUTO 0.15 K/mm3 (0.00-0.10); IMMATURE GRAN PERCENT AUTO 2 % (0-1); LYMPHOCYTES ABSOLUTE AUTO 2.15 K/mm3 (0.84-5.20); LYMPHOCYTES PERCENT AUTO 24 % (21-46); MONOCYTES ABSOLUTE AUTO 0.73 K/mm3 (0.16-1.47); MONOCYTES PERCENT AUTO 8 % (4-13); Mean Corpuscular HGB 31.6 pg (26.0-34.0); Mean Corpuscular HGB Conc 32.2 g/dL (31.5-36.5); Mean Corpuscular Volume 98 fL (80-100); Mean Platelet Volume 9.4 fL (9.1-12.4); NEUTROPHILS ABSOLUTE AUTO 5.77 K/mm3 (1.96-9.15); NEUTROPHILS PERCENT AUTO 65 % (41-73); Platelet Count 201 K/mm3 (150-400); RDW Coefficient Variation 15.5 % (11.7-14.2); RDW Standard Deviation 56.8 fL (35.1-46.3); Red Blood Cell Count 3.76 M/mm3 (3.80-5.20); White Blood Cell Count 8.92 K/mm3 (4.00-11.30)
[2021-03-27 16:56] LABS: Alanine Aminotransfer (ALT/SGP 20 U/L (12-78); Albumin, Blood 2.2 g/dL (3.4-5.0); Albumin/Globulin Ratio 0.9 (0.8-1.8); Alk Phos 124 U/L (50-136); Anion Gap 7 mmol/L (6-16); Aspartate Aminotrans (AST/SGOT 32 U/L (12-37); Bilirubin, Total 0.7 mg/dL (0.1-1.0); Blood Urea Nitrogen 9 mg/dL (8-24); Bun/Creatinine Ratio 13.5 (12.0-20.0); CO2, Blood 33 mmol/L (21-32); Calcium, Blood 7.9 mg/dL (8.5-10.1); Chloride, Blood 97 mmol/L (98-108); Creatinine, Blood 0.67 mg/dL (0.40-1.00); Globulin, Blood 2.5 g/dL (2.2-4.0); Glomerular Filtration Rate >60 (60-); Glucose, Blood 98 mg/dL (70-99); Potassium, Blood 4.1 mmol/L (3.5-5.5); Sodium, Blood 137 mmol/L (136-145); Total Protein, Blood 4.7 g/dL (6.4-8.2)
== END | disposition home or self-care (01) ==
LOC: LAB 15:15 → LAB SHORT 15:15
PROVIDERS: Nurse Practitioner Family
DX: D50.8 Other iron deficiency anemias (principal); R60.9 Edema, unspecified
CPT/HCPCS: 80053; 85025